=== PATIENT | female | born 1960 | race Caucasian/White ===

== ENCOUNTER 2019-05-08 16:50 | Emergency (ER) | payer MEDICAID ==
[2019-05-08 16:58] VITALS: BP 130/79
[2019-05-08] MEDS ORDERED: cephALEXin 250 MG CAPSULE PO STA (18:42)
[2019-05-08] MEDS ORDERED: SULFAMETH/TRIMETH DS 800/160 MG TABLET PO STA (18:42)
--- NOTE | 2019-05-08 18:46 | ED Physician Documentation ---
PD HPI SKIN - Stated complaint Stated Complaint: SORE ON ABD - Chief complaint Chief Complaint: Wound - History obtained from History obtained from: Patient - History of Present Illness Timing - onset: Other (2 or 3 weeks ago she developed what she thought was a blood blister on the left lower abdominal wall. She opened it up with a needle and it subsequently got infected. Pain is mild. She denies fevers.) Review of Systems Ten Systems: 10 systems reviewed and negative Constitutional: denies: Fever, Chills GI: denies: Abdominal Pain, Nausea, Vomiting, Diarrhea PD PAST MEDICAL HISTORY - Present Medications Home Medications: Ambulatory Orders Medication Instructions Recorded Confirmed Cephalexin [Keflex] 500 mg PO Q6H #28 capsule 05/08/19 Sulfamethox/Trimeth 800/160 1 each PO BID #14 tablet 05/08/19 [Bactrim Ds 800/160] - Allergies Allergies/Adverse Reactions: Allergies Allergy/AdvReac Type Severity Reaction Status Date / Time meperidine Allergy Unknown Verified 05/08/19 16:59 PD ED PE NORMAL - Vitals Vital signs reviewed: Yes - General General: Alert and oriented X 3, No acute distress - Abdomen Abdomen: Other (There is an infected ulcer about the size of a quarter on the left lower abdominal wall with mild surrounding cellulitis. A culture was done during exam.) - Neuro Neuro: Alert and oriented X 3, Normal speech Results - Vitals Vitals: Vital Signs - 24 hr 05/08/19 16:55 Temperature 37.0 C Heart Rate 67 Respiratory 17 Rate Blood Pressure 130/79 O2 Saturation 97 Oxygen O2 Source Room air PD MEDICAL DECISION MAKING - ED course ED course: 59-year-old woman with a abdominal wall infected ulcer. She is placed on sulfa and Keflex. A culture was obtained. Departure - Departure Disposition: Home, Self Care Clinical Impression: Abdominal wall cellulitis Condition: Good Record reviewed to determine appropriate education?: Yes Instructions: Cellulitis Dc Prescriptions: Cephalexin [Keflex] 500 mg PO Q6H #28 capsule Sulfamethox/Trimeth 800/160 [Bactrim Ds 800/160] 1 each PO BID #14 tablet Comments: As discussed, he can wash daily with soap and water and then just keep it covered with a bandage. Return for new or worsening symptoms. Wound check with your physician on Sunday. We are culturing the wound, if an antibiotic changes necessary we will call you in approximately 48 hours.
== END 2019-05-08 19:02 | disposition home or self-care (01) ==
LOC: ED 16:50
DX: L03.311 Cellulitis of abdominal wall (principal)
CPT/HCPCS: 87070; 87181; 87205; 99283; A9270

== ENCOUNTER 2019-07-03 14:18 | Emergency (ER) | payer MEDICAID ==
--- NOTE | 2019-07-03 14:39 | ED Physician Documentation ---
PD HPI HEENT - Stated complaint Stated Complaint: RT NASAL PASSAGE SWELLING - Chief complaint Chief Complaint: Heent - History obtained from History obtained from: Patient - History of Present Illness Timing - onset: How many days ago (3) Timing - duration: Days (3) Timing - details: Gradual onset, Still present (much worse today) Location: Nose (right lower nasal rim, just above upper lip. Small firm tender bump there, with today some swelling to upper lip and right nasolabial crease.) Associated symptoms: Facial swelling. No: Fever, Swollen nodes Similar symptoms before: Diagnosis (has had abscesses in other areas (leg and buttock) but not on face/nose.) Recently seen: Not recently seen (moved to area recently and has new PMD appt Jul 15. Had run out of some meds and requests bridging Rx until her appt.) Review of Systems Constitutional: denies: Fever, Chills Nose: denies: Rhinorrhea / runny nose, Congestion Throat: denies: Sore throat Respiratory: denies: Cough GI: denies: Nausea, Vomiting, Diarrhea Skin: reports: Lesions (the durrent nasal lump) Neurologic: denies: Generalized weakness PD PAST MEDICAL HISTORY - Past Medical History Cardiovascular: None Respiratory: None - Past Surgical History Past Surgical History: No - Present Medications Home Medications: Ambulatory Orders Medication Instructions Recorded Confirmed Cephalexin [Keflex] 500 mg PO Q6H #28 capsule 05/08/19 Amlodipine Besylate 5 mg PO DAILY #20 tablet 07/03/19 Chlorhexidine Gluconate [Hibiclens] 15 ml TP DAILY #236 ml 07/03/19 Colestipol HCl [Colestid] 1 gm PO BID #20 tablet 07/03/19 Levothyroxine [Synthroid] 150 mcg PO DAILY #20 tablet 07/03/19 Lisinopril 40 mg PO DAILY #20 tablet 07/03/19 Mupirocin 1 applic TP TID #15 g 07/03/19 Sulfamethox/Trimeth 800/160 1 each PO BID #14 tablet 07/03/19 [Bactrim Ds] Triamterene/Hydrochlorothiazid 1 each PO DAILY #20 tablet 07/03/19 [Triamterene-Hctz 75-50 mg Tab] - Allergies Allergies/Adverse Reactions: Allergies Allergy/AdvReac Type Severity Reaction Status Date / Time meperidine Allergy Unknown Verified 07/03/19 14:28 - Social History Does the pt smoke?: No Smoking Status: Never smoker Does the pt drink ETOH?: Yes Does the pt have substance abuse?: No - Immunizations Immunizations are current?: Yes - POLST Patient has POLST: No PD ED PE NORMAL - Vitals Vital signs reviewed: Yes - General General: Alert and oriented X 3, No acute distress, Well developed/nourished - HEENT HEENT: Moist mucous membranes, Pharynx benign, Other (right nasal rim with focal area of lump and tenderness c/w small abscess, but no fluctuance. There is some swelling extending to upper lip and right nasolabial fold. No fluctuance there either. ) - Neck Neck: Supple, no meningeal sign, No adenopathy - Cardiac Cardiac: RRR, No murmur - Respiratory Respiratory: Clear bilaterally - Derm Derm: Normal color, Warm and dry - Neuro Neuro: Alert and oriented X 3, No motor deficit, Normal speech Results - Vitals Vitals: Vital Signs - 24 hr 07/03/19 07/03/19 14:22 16:28 Temperature 36.7 C Heart Rate 67 64 Respiratory 16 16 Rate Blood Pressure 148/92 H 131/62 H O2 Saturation 98 98 Oxygen O2 Source Room air Procedures - Abscess I&D (location) right nasal rim Preparation: LET Incision: Incised with scalpel, Purulent drainage (just a couple drops) Other: Pt tolerated well, Antibiotic prescribed PD MEDICAL DECISION MAKING - ED course Complexity details: considered differential, d/w patient Departure - Departure Disposition: 01 Home, Self Care Clinical Impression: Abscess or cellulitis of nose, external Condition: Stable Record reviewed to determine appropriate education?: Yes Instructions: ED Staph Infec Abx Tx Only Prescriptions: Amlodipine Besylate 5 mg PO DAILY #20 tablet Chlorhexidine Gluconate [Hibiclens] 15 ml TP DAILY #236 ml Colestipol HCl [Colestid] 1 gm PO BID #20 tablet Levothyroxine [Synthroid] 150 mcg PO DAILY #20 tablet Lisinopril 40 mg PO DAILY #20 tablet Mupirocin 1 applic TP TID #15 g Sulfamethox/Trimeth 800/160 [Bactrim Ds] 1 each PO BID #14 tablet Triamterene/Hydrochlorothiazid [Triamterene-Hctz 75-50 mg Tab] 1 each PO DAILY #20 tablet Comments: Continue usual medications. Use some warm moist towels to the infection area around the nose to help dry out more drainage. Apply mupirocin antibiotic ointment 2-3 times daily to the area. Use Bactrim antibiotic twice daily for a week for the infection. Use chlorhexidine antiseptic in the shower from head to toe to try to reduce the chance of infection in other places. Do a daily for the next few days and then to once a week or so after that. Recheck if not fully improved over the next several days or so. Discharge Date/Time: 07/03/19 16:28
[2019-07-03] MEDS ORDERED: SULFAMETH/TRIMETH DS 800/160 MG TABLET PO STA (15:02)
[2019-07-03] MEDS ORDERED: LIDOCAINE-EPINEPH-TETRACAINE 3 ML SYRINGE TOP STA (15:03)
[2019-07-03] MEDS ORDERED: MUPIROCIN 2% OINT 1 GM TOP STA (15:03)
[2019-07-03 16:29] VITALS: BP 131/62
== END 2019-07-03 16:28 | disposition home or self-care (01) ==
LOC: ED 14:18
DX: J34.0 Abscess, furuncle and carbuncle of nose (principal)
CPT/HCPCS: 10060

== ENCOUNTER 2019-07-03 19:21 | Outpatient (CLI) | payer MEDICAID | END 2019-07-03 19:22 | disposition critical access hospital (66) | LOC: EMS 19:21 | PROVIDERS: ATTEND Surgery | DX: L29.9 Pruritus, unspecified (principal); R06.02 Shortness of breath | CPT/HCPCS: A0425; A0427; A0999 ==

== ENCOUNTER 2019-07-03 19:58 | Emergency (ER) | payer MEDICAID ==
[2019-07-03] MEDS ORDERED: predniSONE 20 MG TABLET PO STA (20:06)
[2019-07-03] MEDS ORDERED: SODIUM CHLORIDE 0.9% 1,000 ML IV ONE (20:07)
[2019-07-03] MEDS ORDERED: ACETAMINOPHEN 325 MG TABLET PO STA (20:13)
--- NOTE | 2019-07-03 20:22 | ED Physician Documentation ---
History of Present Illness - Stated complaint Stated Complaint: ALLERGIC REACTION - History obtained from History obtained from: Patient - History of Present Illness Timing: Today Pain level max: 0 Pain level now: 0 - Additonal information Additional information: 59-year-old female presents to the emergency department after being seen here earlier today and started on Bactrim. She began to itch on her way home and took Benadryl without relief. She was given epinephrine by EMS 0.3 mg IM approximately 45 minutes prior to arrival. She was not having any difficulty breathing. No wheezing or stridor. She is currently feeling better. Does not have any known allergies to medications. No nausea or vomiting. Review of Systems Constitutional: denies: Fever, Chills Nose: denies: Rhinorrhea / runny nose, Congestion Throat: denies: Sore throat Cardiac: denies: Chest pain / pressure Respiratory: denies: Cough GI: denies: Nausea, Vomiting, Diarrhea Skin: denies: Rash Musculoskeletal: denies: Neck pain, Back pain Neurologic: denies: Focal weakness, Numbness, Headache PD PAST MEDICAL HISTORY - Past Medical History Past Medical History: Yes Cardiovascular: Hypertension, High cholesterol Endocrine/Autoimmune: HyPOthyroidism Psych: Depression Musculoskeletal: Osteoarthritis - Past Surgical History Past Surgical History: No General: Cholecystectomy - Present Medications Home Medications: Ambulatory Orders Medication Instructions Recorded Confirmed Cephalexin [Keflex] 500 mg PO Q6H #28 capsule 05/08/19 Amlodipine Besylate 5 mg PO DAILY #20 tablet 07/03/19 Chlorhexidine Gluconate [Hibiclens] 15 ml TP DAILY #236 ml 07/03/19 Clindamycin HCl [Clindamycin 300MG 300 mg PO Q6H #28 capsule 07/03/19 CAP] Colestipol HCl [Colestid] 1 gm PO BID #20 tablet 07/03/19 Levothyroxine [Synthroid] 150 mcg PO DAILY #20 tablet 07/03/19 Lisinopril 40 mg PO DAILY #20 tablet 07/03/19 Mupirocin 1 applic TP TID #15 g 07/03/19 Sulfamethox/Trimeth 800/160 1 each PO BID #14 tablet 07/03/19 [Bactrim Ds] Triamterene/Hydrochlorothiazid 1 each PO DAILY #20 tablet 07/03/19 [Triamterene-Hctz 75-50 mg Tab] predniSONE [Prednisone] 40 mg PO DAILY #6 tablet 07/03/19 - Allergies Allergies/Adverse Reactions: Allergies Allergy/AdvReac Type Severity Reaction Status Date / Time meperidine Allergy Unknown Verified 07/03/19 14:28 Sulfa (Sulfonamide Allergy Itching Verified 07/03/19 20:21 Antibiotics) - Social History Does the pt smoke?: No Smoking Status: Never smoker Does the pt drink ETOH?: Yes Does the pt have substance abuse?: No - Immunizations Immunizations are current?: Yes - POLST Patient has POLST: No PD ED PE NORMAL - Vitals Vital signs reviewed: Yes - General General: Alert and oriented X 3, No acute distress - HEENT HEENT: Ears normal, Moist mucous membranes, Pharynx benign - Neck Neck: Supple, no meningeal sign - Cardiac Cardiac: RRR - Respiratory Respiratory: No respiratory distress, Clear bilaterally, Other (No wheezing or stridor) - Abdomen Abdomen: Soft, Non tender, Non distended - Derm Derm: Warm and dry, No rash - Extremities Extremities: No edema - Neuro Neuro: Alert and oriented X 3 Results - Vitals Vitals: Vital Signs - 24 hr 07/03/19 07/03/19 07/03/19 20:00 21:00 21:14 Temperature 36.9 C Heart Rate 69 64 Respiratory 21 17 Rate Blood Pressure 155/90 H 158/96 H 117/75 O2 Saturation 97 97 Oxygen O2 Source Room air PD MEDICAL DECISION MAKING - ED course Complexity details: re-evaluated patient, considered differential, d/w patient ED course: Symptoms resolved in the emergency department. Likely allergic reaction to the sulfa and Bactrim. Given prednisone here as well. No recurrence of symptoms after the epinephrine has worn off. Will prescribe prednisone for home and change her to clindamycin. Patient never had any respiratory issues or evidence of anaphylaxis. Patient counseled regarding signs and symptoms for which I believe and urgent re-evaluation would be necessary. Patient with good understanding of and agreement to plan and is comfortable going home at this time This document was made in part using voice recognition software. While efforts are made to proofread this document, sound alike and grammatical errors may occur. Departure - Departure Disposition: 01 Home, Self Care Clinical Impression: Allergic reaction Qualifiers: Encounter type: initial encounter Qualified Code(s): T78.40XA - Allergy, unspecified, initial encounter Condition: Good Instructions: ED Drug React Allergic Follow-Up: Jacqueline Victoria ARNP [Primary Care Provider] - Within 1 week Prescriptions: Clindamycin HCl [Clindamycin 300MG CAP] 300 mg PO Q6H #28 capsule predniSONE [Prednisone] 40 mg PO DAILY #6 tablet Comments: You appear to have an allergy to sulfa. Return if you worsen. Stop the Bactrim. We will change her antibiotic to clindamycin. Discharge Date/Time: 07/03/19 21:14
[2019-07-03 21:15] VITALS: BP 117/75
== END 2019-07-03 21:14 | disposition home or self-care (01) ==
LOC: EDUNIT# → ED 19:58
DX: J34.0 Abscess, furuncle and carbuncle of nose (principal); L29.9 Pruritus, unspecified; T36.8X5A Adverse effect of other systemic antibiotics, initial encounter; I10 Essential (primary) hypertension
CPT/HCPCS: 10060; 96360; 99283; 99284; A9270; J7512

== ENCOUNTER 2019-07-22 09:09 | Outpatient (CLI) | payer MEDICAID ==
[2019-07-22 17:35] LABS: BASOPHILS % (AUTO) 0.5 %; EOSINOPHILS # (AUTO) 0.2 10^3/uL (0.0-0.7); EOSINOPHILS % (AUTO) 2.3 %; HGB - HEMOGLOBIN 11.3 g/dL (12.0-16.0); LYMPHOCYTES # (AUTO) 1.5 10^3/uL (1.5-3.5); LYMPHOCYTES % (AUTO) 19.9 %; MEAN CORPUSCULAR HGB CONC 31.1 g/dL (32.0-36.0); MEAN CORPUSCULAR VOLUME 93.1 fL (81.0-99.0); MEAN PLATELET VOLUME 11.1 fL (7.9-10.8); MONOCYTES # (AUTO) 0.4 10^3/uL (0.0-1.0); NEUTROPHILS # (AUTO) 5.2 10^3/uL (1.5-6.6); NEUTROPHILS % (AUTO) 70.8 %; PLT - PLATELET COUNT 284 10^3/uL (130-450); RED CELL DISTRIBUTION WIDTH 15.1 % (12.0-15.0); WHITE BLOOD COUNT 7.4 x10^3/uL (4.8-10.8)
[2019-07-22 18:03] LABS: ALBUMIN 3.7 g/dL (3.2-5.5); ALBUMIN/GLOBULIN RATIO 1.1 (1.0-2.2); ALKALINE PHOSPHATASE 73 IU/L (42-121); ALT ALANINE AMINOTRANSFERASE 27 IU/L (10-60); AST ASPARTATE AMINOTRANSFERASE 21 IU/L (10-42); BILIRUBIN,TOTAL 0.7 mg/dL (0.2-1.0); BUN - BLOOD UREA NITROGEN 13 mg/dL (6-20); CALCIUM 8.5 mg/dL (8.5-10.3); CARBON DIOXIDE - CO2 27 mmol/L (21-32); CHLORIDE 107 mmol/L (101-111); CHOL/HDL RATIO 5.9 (<4.4); CHOLESTEROL 199 mg/dL; CREATININE 1.1 mg/dL (0.4-1.0); GFR - MDRD 51 (>89); GLUCOSE 115 mg/dL (70-100); HDL CHOLESTEROL 34 mg/dL; LDL CHOLESTEROL,CALCULATED 102 mg/dL; SODIUM 142 mmol/L (135-145); TOTAL PROTEIN 7.1 g/dL (6.7-8.2); VLDL CHOLESTEROL 63 mg/dL
[2019-07-22 18:40] LABS: FREE T4 (FREE THYROXINE) 0.96 ng/dL (0.58-1.64)
--- NOTE | 2019-07-22 21:43 | XRAY Report ---
Reason: KNEE PAIN, LEFT Procedure Date: 07/22/2019 Accession Number: [id number] / [id number] Procedure: XRS - Knee 2 View LT CPT Code: Final Report FULL RESULT: EXAM: LEFT KNEE RADIOGRAPHY EXAM DATE: 07/22/2019 09:36 AM. CLINICAL HISTORY: KNEE PAIN, LEFT. COMPARISON: None. TECHNIQUE: 2 views. FINDINGS: Bones: Multiple osteophytes are present. No fractures or bone lesions. No evidence of bony remodeling. Joints: There is moderate tricompartmental joint space narrowing. No effusion. No subluxations. Soft Tissues: Normal. No soft tissue swelling. IMPRESSION: Mild osteoarthritic changes present without acute fracture. Kellgren Nilo Grade 2. Kellgren and Nilo classification of osteoarthritis: Grade 0: no radiographic features of osteoarthritis are present Grade 1: doubtful joint space narrowing (JSN) and possible osteophytic lipping Grade 2: definite osteophytes and possible JSN on anteroposterior weight-bearing radiograph Grade 3: multiple osteophytes, definite JSN, sclerosis, possible bony deformity Grade 4: large osteophytes, marked JSN, severe sclerosis and definite bony deformity RADIA
== END 2019-07-22 09:10 | disposition home or self-care (01) ==
LOC: DI.S 09:09
PROVIDERS: ATTEND Registered Nurse
DX: M17.12 Unilateral primary osteoarthritis, left knee (principal); K21.9 Gastro-esophageal reflux disease without esophagitis; I10 Essential (primary) hypertension; E03.9 Hypothyroidism, unspecified; E78.5 Hyperlipidemia, unspecified
CPT/HCPCS: 36415; 80053; 80061; 83721; 84439; 84443; 85025

== ENCOUNTER 2019-08-29 08:00 | Outpatient (CLI) | payer MEDICAID | END 2019-08-29 23:59 | disposition home or self-care (01) | LOC: LAB.R 08:00 | PROVIDERS: ATTEND Registered Nurse | DX: K52.9 Noninfective gastroenteritis and colitis, unspecified (principal) | CPT/HCPCS: 87177; 87209 ==

== ENCOUNTER 2019-12-30 23:19 | Emergency (ER) | payer MEDICAID ==
[2019-12-30] MEDS ORDERED: predniSONE 20 MG TABLET PO STA (23:32)
[2019-12-30] MEDS ORDERED: CETIRIZINE 10 MG TABLET PO STA (23:32)
--- NOTE | 2019-12-30 23:42 | ED Physician Documentation ---
History of Present Illness - Stated complaint Stated Complaint: ALLERGIC REACTION - Chief complaint Chief Complaint: General - History obtained from History obtained from: Patient - History of Present Illness Timing: Today Pain level max: 0 Pain level now: 0 - Additonal information Additional information: Patient states that she had Vazquez's this morning and then her hands started itching. And has continued to itch throughout the night. Has not taken anything for this. Nothing makes it better or worse. No difficulty breathing. No throat swelling. No rash. Review of Systems Constitutional: denies: Fever, Chills Respiratory: denies: Cough GI: denies: Nausea, Vomiting, Diarrhea Skin: denies: Rash Neurologic: denies: Headache PD PAST MEDICAL HISTORY - Past Medical History Cardiovascular: Hypertension, High cholesterol Endocrine/Autoimmune: HyPOthyroidism Psych: Depression Musculoskeletal: Osteoarthritis - Past Surgical History Past Surgical History: No General: Cholecystectomy - Present Medications Home Medications: Ambulatory Orders Medication Instructions Recorded Confirmed Cephalexin [Keflex] 500 mg PO Q6H #28 capsule 05/08/19 Amlodipine Besylate 5 mg PO DAILY #20 tablet 07/03/19 Chlorhexidine Gluconate [Hibiclens] 15 ml TP DAILY #236 ml 07/03/19 Clindamycin HCl [Clindamycin 300MG 300 mg PO Q6H #28 capsule 07/03/19 CAP] Colestipol HCl [Colestid] 1 gm PO BID #20 tablet 07/03/19 Levothyroxine [Synthroid] 150 mcg PO DAILY #20 tablet 07/03/19 Mupirocin 1 applic TP TID #15 g 07/03/19 Sulfamethox/Trimeth 800/160 1 each PO BID #14 tablet 07/03/19 [Bactrim Ds] Triamterene/Hydrochlorothiazid 1 each PO DAILY #20 tablet 07/03/19 [Triamterene-Hctz 75-50 mg Tab] lisinopriL [Lisinopril] 40 mg PO DAILY #20 tablet 07/03/19 predniSONE [Prednisone] 40 mg PO DAILY #6 tablet 07/03/19 predniSONE [Prednisone] 40 mg PO DAILY #10 tablet 12/30/19 - Allergies Allergies/Adverse Reactions: Allergies Allergy/AdvReac Type Severity Reaction Status Date / Time meperidine Allergy Unknown Verified 12/30/19 23:27 Sulfa (Sulfonamide Allergy Itching Verified 12/30/19 23:27 Antibiotics) - Social History Does the pt smoke?: No Smoking Status: Never smoker Does the pt drink ETOH?: Yes Does the pt have substance abuse?: No - Immunizations Immunizations are current?: Yes - POLST Patient has POLST: No PD ED PE NORMAL - Vitals Vital signs reviewed: Yes - General General: Alert and oriented X 3, No acute distress - HEENT HEENT: Moist mucous membranes - Neck Neck: Supple, no meningeal sign - Cardiac Cardiac: RRR - Respiratory Respiratory: No respiratory distress, Clear bilaterally - Abdomen Abdomen: Soft, Non tender, Non distended - Derm Derm: Warm and dry, No rash - Neuro Neuro: Alert and oriented X 3 - Psych Psych: Normal mood, Normal affect Results - Vitals Vitals: Vital Signs - 24 hr 12/30/19 12/30/19 23:25 23:50 Temperature 36.5 C Heart Rate 67 68 Respiratory 17 98 H Rate Blood Pressure 132/69 H 127/73 O2 Saturation 96 Oxygen O2 Source Room air PD MEDICAL DECISION MAKING - ED course Complexity details: considered differential, d/w patient ED course: Patient with an apparent allergic reaction. Unclear to what. Will place her on steroids for home. She is well-appearing, nontoxic. Afebrile. No airway involvement. No stridor. No wheezing. No visible urticaria. Patient counseled regarding signs and symptoms for which I believe and urgent re- evaluation would be necessary. Patient left the emergency department and as she walked by the nurses station, she said her hands were still itching. She was informed that the medication would take 20-30 minutes to begin to work and that she is welcome to stay in her room if she wishes to stay. Patient turned away angrily and left the emergency department. This document was made in part using voice recognition software. While efforts are made to proofread this document, sound alike and grammatical errors may occur. Departure - Departure Disposition: 01 Home, Self Care Clinical Impression: Allergic reaction Qualifiers: Encounter type: initial encounter Qualified Code(s): T78.40XA - Allergy, unspecified, initial encounter Condition: Good Instructions: ED Allergic Reaction General Other Follow-Up: Jacqueline Victoria ARNP [Primary Care Provider] - As Needed Prescriptions: predniSONE [Prednisone] 40 mg PO DAILY #10 tablet Comments: You can use Benadryl, Zyrtec or Claritin at home as well. Return if you worsen. This should improve over the next 24 hours. Discharge Date/Time: 12/30/19 23:54
[2019-12-31] VITALS: BP 127/73
== END 2019-12-30 23:54 | disposition home or self-care (01) ==
LOC: ED 23:19
DX: T78.40XA Allergy, unspecified, initial encounter (principal); X58.XXXA Exposure to other specified factors, initial encounter; I10 Essential (primary) hypertension
CPT/HCPCS: 99282; 99284; A9270; J7512

== ENCOUNTER 2020-02-09 08:00 | Outpatient (CLI) | payer SELFPAY ==
[2020-02-09 17:54] LABS: BASOPHILS % (AUTO) 0.5 %; EOSINOPHILS # (AUTO) 0.1 10^3/uL (0.0-0.7); EOSINOPHILS % (AUTO) 1.5 %; HGB - HEMOGLOBIN 11.3 g/dL (12.0-16.0); LYMPHOCYTES # (AUTO) 1.1 10^3/uL (1.5-3.5); LYMPHOCYTES % (AUTO) 13.7 %; MEAN CORPUSCULAR HEMOGLOBIN 27.4 pg (27.0-31.0); MEAN CORPUSCULAR HGB CONC 30.9 g/dL (32.0-36.0); MEAN CORPUSCULAR VOLUME 88.8 fL (81.0-99.0); MEAN PLATELET VOLUME 10.6 fL (7.9-10.8); MONOCYTES # (AUTO) 0.4 10^3/uL (0.0-1.0); NEUTROPHILS # (AUTO) 6.5 10^3/uL (1.5-6.6); NEUTROPHILS % (AUTO) 78.9 %; PLT - PLATELET COUNT 235 10^3/uL (130-450); RED BLOOD COUNT 4.12 10^6/uL (4.20-5.40); RED CELL DISTRIBUTION WIDTH 14.2 % (12.0-15.0); WHITE BLOOD COUNT 8.3 x10^3/uL (4.8-10.8)
[2020-02-09 18:05] LABS: ALBUMIN 3.9 g/dL (3.2-5.5); ALBUMIN/GLOBULIN RATIO 1.2 (1.0-2.2); BILIRUBIN,TOTAL 0.7 mg/dL (0.2-1.0); CALCIUM 8.9 mg/dL (8.5-10.3); CREATININE 1.7 mg/dL (0.4-1.0); TOTAL PROTEIN 7.1 g/dL (6.7-8.2)
[2020-02-09 18:18] LABS: THYROID STIMULATING HORMONE 6.17 uIU/mL (0.34-5.60)
[2020-02-09 18:19] LABS: FREE T3 2.92 pg/mL (2.5-3.9)
[2020-02-09 18:20] LABS: FREE T4 (FREE THYROXINE) 0.93 ng/dL (0.58-1.64)
== END 2020-02-09 23:59 | disposition home or self-care (01) ==
LOC: LAB.WCP 08:00
PROVIDERS: ATTEND Nurse Practitioner
DX: I12.9 Hypertensive chronic kidney disease with stage 1 through stage 4 chronic kidney disease, or unspecified chronic kidney disease (principal); N18.3 Chronic kidney disease, stage 3 (moderate); D63.1 Anemia in chronic kidney disease; E03.9 Hypothyroidism, unspecified; F32.9 Major depressive disorder, single episode, unspecified; F41.9 Anxiety disorder, unspecified
CPT/HCPCS: 36415; 80053; 84439; 84443; 84481; 85025

== ENCOUNTER 2020-03-03 21:39 | Outpatient (CLI) | payer MEDICAID ==
[2020-03-03 23:40] LABS: BILIRUBIN,URINE NEGATIVE (NEGATIVE); GLUCOSE, URINE (UA) NEGATIVE (NEGATIVE); KETONES,URINE (UA) NEGATIVE (NEGATIVE); LEUKOCYTE ESTERASE, URINE TRACE (NEGATIVE); NITRITE,URINE NEGATIVE (NEGATIVE); OCCULT BLOOD,URINE NEGATIVE (NEGATIVE); PROTEIN,URINE NEGATIVE (NEGATIVE); UROBILINOGEN,URINE 0.2 (NORMAL) E.U./dL (NORMAL)
[2020-03-03 23:46] LABS: BACTERIA,URINE Few /HPF (None Seen); CLARITY,URINE HAZY (CLEAR); RBC,URINE 0-5 /HPF (0-5); SQUAMOUS EPITHELIAL CELL,UR MOD Squamous (<= Few)
--- NOTE | 2020-03-04 09:53 | Ultrasound Report ---
PROCEDURE: Retroperitoneal INDICATIONS: CKD STAGE 3 TECHNIQUE: Real-time scanning was performed of the kidneys and bladder, with image documentation. COMPARISON: None. FINDINGS: Evaluation is limited by body habitus and bowel gas. Kidneys: Right kidney measures 11.0 cm long; left kidney measures 10.7 cm long. Right renal cortica l thickness is 1.0 cm; left renal cortical thickness is 1.3 cm. Renal cortical echotexture appears g rossly within normal limits with preserved cortical medullary differentiation. No hydronephrosis. Bladder: Pre-void bladder volume is 110 mL. No postvoid residual volume. Pre-void images demonstrate no intraluminal masses or stones. On pre-void images, bilateral ureteral jets are noted with color Doppler interrogation. Miscellaneous: No free pelvic fluid. IMPRESSION: 1. No evidence of hydronephrosis. 2. Mild renal cortical thinning bilaterally. Reviewed by: Austin Zepeda MD on 03/04/2020 9:52 AM PDT Approved by: Austin Zepeda MD on 03/04/2020 9:52 AM PDT Station ID: [id number]
[2020-03-06 15:04] LABS: ALBUMIN 3.7 g/dL (3.8-4.8); ALPHA 1 GLOBULIN 0.4 g/dL (0.2-0.3); ALPHA 2 GLOBULIN 0.9 g/dL (0.5-0.9); BETA 1 GLOBULIN 0.4 g/dL (0.4-0.6); BETA 2 GLOBULIN 0.4 g/dL (0.2-0.5); GAMMA GLOBULIN 0.8 g/dL (0.8-1.7)
== END 2020-03-03 21:40 | disposition home or self-care (01) ==
LOC: DI 21:39
PROVIDERS: ATTEND Nurse Practitioner
DX: N18.3 Chronic kidney disease, stage 3 (moderate) (principal); D64.9 Anemia, unspecified
CPT/HCPCS: 36415; 76770; 81001; 84155; 84165

== ENCOUNTER 2020-03-16 18:35 | Outpatient (CLI) | payer MEDICAID ==
[2020-03-02 18:18] LABS: ALBUMIN/GLOBULIN RATIO 1.3 (1.0-2.2); BILIRUBIN,TOTAL 0.9 mg/dL (0.2-1.0); CALCIUM 8.6 mg/dL (8.5-10.3); CREATININE 2.3 mg/dL (0.4-1.0); TOTAL PROTEIN 7.2 g/dL (6.7-8.2)
[2020-03-16 19:06] LABS: ALBUMIN 3.9 g/dL (3.2-5.5); ALBUMIN/GLOBULIN RATIO 1.2 (1.0-2.2); BILIRUBIN,TOTAL 0.6 mg/dL (0.2-1.0); CREATININE 1.4 mg/dL (0.4-1.0); TOTAL PROTEIN 7.1 g/dL (6.7-8.2)
== END 2020-03-16 18:36 | disposition home or self-care (01) ==
LOC: LAB.WCP 18:35
PROVIDERS: ATTEND Nurse Practitioner
DX: N18.3 Chronic kidney disease, stage 3 (moderate) (principal)
CPT/HCPCS: 36415; 80053; 84300

== ENCOUNTER 2020-03-18 19:11 | Outpatient (CLI) | payer MEDICAID ==
--- NOTE | 2020-03-19 08:39 | XRAY Report ---
PROCEDURE: Chest 2 View X-Ray INDICATIONS: EXERTIONAL SHORTNESS OF BREATH TECHNIQUE: 2 view(s) of the chest. COMPARISON: None. FINDINGS: Surgical changes and devices: None. Lungs and pleura: No pleural effusions or pneumothorax. Lungs are clear. Normal variant asymmetric elevation of the right hemidiaphragm. Mediastinum: Mediastinal contours are normal. Heart size is normal. Bones and chest wall: No suspicious bony abnormalities. Soft tissues appear unremarkable. IMPRESSION: No acute cardiopulmonary process demonstrated radiographically. Reviewed by: Nikhil Miguel MD on 03/19/2020 8:37 AM PDT Approved by: Nikhil Miguel MD on 03/19/2020 8:37 AM PDT Station ID: [id number]
== END 2020-03-18 19:12 | disposition home or self-care (01) ==
LOC: DI 19:11
PROVIDERS: ATTEND Nurse Practitioner
DX: R06.02 Shortness of breath (principal)
CPT/HCPCS: 71046

== ENCOUNTER 2020-03-26 07:00 | Outpatient (CLI) | payer MEDICAID | END 2020-03-26 23:59 | disposition home or self-care (01) | LOC: LAB.R 07:00 | PROVIDERS: ATTEND Family Medicine | DX: R06.09 Other forms of dyspnea (principal); Z20.828 Contact with and (suspected) exposure to other viral communicable diseases ==

== ENCOUNTER 2020-04-28 08:00 | Outpatient (CLI) | payer MEDICAID ==
[2020-04-28 11:56] LABS: BASOPHILS % (AUTO) 0.4 %; EOSINOPHILS # (AUTO) 0.1 10^3/uL (0.0-0.7); EOSINOPHILS % (AUTO) 1.7 %; HGB - HEMOGLOBIN 11.5 g/dL (12.0-16.0); LYMPHOCYTES # (AUTO) 1.4 10^3/uL (1.5-3.5); LYMPHOCYTES % (AUTO) 16.9 %; MEAN CORPUSCULAR HEMOGLOBIN 27.6 pg (27.0-31.0); MEAN CORPUSCULAR HGB CONC 31.2 g/dL (32.0-36.0); MEAN CORPUSCULAR VOLUME 88.7 fL (81.0-99.0); MEAN PLATELET VOLUME 10.9 fL (7.9-10.8); MONOCYTES # (AUTO) 0.6 10^3/uL (0.0-1.0); MONOCYTES % (AUTO) 6.8 %; NEUTROPHILS # (AUTO) 6.2 10^3/uL (1.5-6.6); NEUTROPHILS % (AUTO) 73.7 %; PLT - PLATELET COUNT 273 10^3/uL (130-450); RED BLOOD COUNT 4.16 10^6/uL (4.20-5.40); RED CELL DISTRIBUTION WIDTH 14.2 % (12.0-15.0); WHITE BLOOD COUNT 8.4 x10^3/uL (4.8-10.8)
[2020-04-28 12:19] LABS: ALBUMIN 3.9 g/dL (3.2-5.5); ALBUMIN/GLOBULIN RATIO 1.3 (1.0-2.2); BILIRUBIN,TOTAL 0.7 mg/dL (0.2-1.0); CALCIUM 9.1 mg/dL (8.5-10.3); CREATININE 1.2 mg/dL (0.4-1.0)
== END 2020-04-28 23:59 | disposition home or self-care (01) ==
LOC: LAB.WCP 08:00
PROVIDERS: ATTEND Nurse Practitioner
DX: N18.3 Chronic kidney disease, stage 3 (moderate) (principal)
CPT/HCPCS: 36415; 80053; 85025

== ENCOUNTER 2020-09-16 12:54 | Outpatient (CLI) | payer MEDICAID ==
--- NOTE | 2020-09-16 15:58 | XRAY Report ---
PROCEDURE: Knee 3 View LT INDICATIONS: L KNEE PX TECHNIQUE: 3 views of the left knee(s) were acquired. COMPARISON: None. FINDINGS: Bones: No fractures or dislocations. No suspicious bony lesions. Moderate patellofemoral and media l compartment osteoarthritis. Mild lateral compartment osteoarthritis. Soft tissues: No joint effusion. No suspicious soft tissue calcifications. IMPRESSION: Tricompartmental osteoarthritis. Reviewed by: Heaven Marshall MD, PhD on 09/16/2020 3:57 PM PST Approved by: Heaven Marshall MD, PhD on 09/16/2020 3:57 PM PST Station ID: [id number]
== END 2020-09-16 23:59 | disposition home or self-care (01) ==
LOC: DI.N 12:54
PROVIDERS: ATTEND Family Medicine
DX: M25.562 Pain in left knee (principal); M17.12 Unilateral primary osteoarthritis, left knee

== ENCOUNTER 2020-10-13 08:00 | Outpatient (CLI) | payer MEDICAID ==
[2020-10-13 18:23] LABS: BASOPHILS % (AUTO) 0.2 %; EOSINOPHILS # (AUTO) 0.1 10^3/uL (0.0-0.7); EOSINOPHILS % (AUTO) 1.4 %; HGB - HEMOGLOBIN 12.9 g/dL (12.0-16.0); LYMPHOCYTES # (AUTO) 1.2 10^3/uL (1.5-3.5); MEAN CORPUSCULAR HEMOGLOBIN 26.2 pg (27.0-31.0); MEAN CORPUSCULAR HGB CONC 30.7 g/dL (32.0-36.0); MEAN CORPUSCULAR VOLUME 85.4 fL (81.0-99.0); MEAN PLATELET VOLUME 10.8 fL (7.9-10.8); MONOCYTES # (AUTO) 0.5 10^3/uL (0.0-1.0); MONOCYTES % (AUTO) 5.8 %; NEUTROPHILS # (AUTO) 6.8 10^3/uL (1.5-6.6); NEUTROPHILS % (AUTO) 78.3 %; PLT - PLATELET COUNT 239 10^3/uL (130-450); RED BLOOD COUNT 4.92 10^6/uL (4.20-5.40); RED CELL DISTRIBUTION WIDTH 16.4 % (12.0-15.0); WHITE BLOOD COUNT 8.7 x10^3/uL (4.8-10.8)
[2020-10-13 18:29] LABS: BILIRUBIN,URINE NEGATIVE (NEGATIVE); GLUCOSE, URINE (UA) NEGATIVE (NEGATIVE); KETONES,URINE (UA) NEGATIVE (NEGATIVE); LEUKOCYTE ESTERASE, URINE NEGATIVE (NEGATIVE); NITRITE,URINE NEGATIVE (NEGATIVE); OCCULT BLOOD,URINE NEGATIVE (NEGATIVE); PH,URINE 6.5 PH (5.0-7.5); PROTEIN,URINE NEGATIVE (NEGATIVE); UROBILINOGEN,URINE 0.2 (NORMAL) E.U./dL (NORMAL)
[2020-10-13 18:43] LABS: CLARITY,URINE CLEAR (CLEAR)
[2020-10-13 18:44] LABS: BACTERIA,URINE None Seen /HPF (None Seen); RBC,URINE None Seen /HPF (0-5); SQUAMOUS EPITHELIAL CELL,UR RARE Squamous (<= Few); WBC,URINE 0-3 /HPF (0-5)
[2020-10-13 19:06] LABS: THYROID STIMULATING HORMONE 5.03 uIU/mL (0.34-5.60)
[2020-10-13 19:08] LABS: ESTIMATED AVERAGE GLUCOSE 114 mg/dL (70-100); HEMOGLOBIN A1c% 5.6 % (4.27-6.07)
[2020-10-13 19:13] LABS: FERRITIN 28.1 ng/mL (11.0-306.8)
[2020-10-13 19:15] LABS: % IRON SATURATION 15 % (20-50); ALBUMIN 3.9 g/dL (3.2-5.5); ALBUMIN/GLOBULIN RATIO 1.1 (1.0-2.2); ALKALINE PHOSPHATASE 103 IU/L (42-121); ALT ALANINE AMINOTRANSFERASE 12 IU/L (10-60); AST ASPARTATE AMINOTRANSFERASE 15 IU/L (10-42); BILIRUBIN,TOTAL 0.8 mg/dL (0.2-1.0); BUN - BLOOD UREA NITROGEN 17 mg/dL (6-20); CALCIUM 9.1 mg/dL (8.5-10.3); CARBON DIOXIDE - CO2 30 mmol/L (21-32); CHLORIDE 103 mmol/L (101-111); CHOLESTEROL 133 mg/dL; GFR - MDRD 57 (>89); GLUCOSE 105 mg/dL (70-100); HDL CHOLESTEROL 33 mg/dL; IRON 57 ug/dL (28-170); LDL CHOLESTEROL,CALCULATED 61 mg/dL; LDL/HDL RATIO 1.8 (<4.4); POTASSIUM 3.9 mmol/L (3.5-5.0); SODIUM 139 mmol/L (135-145); TOTAL IRON BINDING CAPACITY 375 ug/dL (250-450); TOTAL PROTEIN 7.5 g/dL (6.7-8.2); TRANSFERRIN 268 mg/dL (192-382); TRIGLYCERIDES 195 mg/dL; VLDL CHOLESTEROL 39 mg/dL
== END 2020-10-13 23:59 | disposition home or self-care (01) ==
LOC: LAB.WCP 08:00
PROVIDERS: ATTEND Family Medicine
DX: D64.9 Anemia, unspecified (principal); E78.1 Pure hyperglyceridemia; E66.01 Morbid (severe) obesity due to excess calories; E03.9 Hypothyroidism, unspecified; N18.30 Chronic kidney disease, stage 3 unspecified
CPT/HCPCS: 36415; 80053; 80061; 81001; 82607; 82728; 83036; 83540; 83721; 84443; 84466; 85025

== ENCOUNTER 2020-11-14 14:41 | Outpatient (CLI) | payer MEDICAID ==
--- NOTE | 2020-11-14 17:16 | Ultrasound Report ---
PROCEDURE: Pelvic w/Transvaginal INDICATIONS: POST MENOPAUSAL BLEEDING TECHNIQUE: Real-time scanning was performed of the pelvic organs, with image documentation. Additional endovagi nal scanning was necessary due to incomplete visualization of the adnexal and endometrial structures by transabdominal scanning. COMPARISON: None. FINDINGS: No pathologic free abdominal or pelvic fluid. Uterus: Uterus is mildly prominent in size, measuring 10.3 x 4.9 x 5.9 cm. The endometrium measures 17 mm in combined thickness. An apparent polyp can be seen along the anterior fundal region of the endometrial stripe measures up to 1.1 cm. An additional 7 mm cyst can be seen involving the lower [place] segment. Uterine fibroids are seen, which are as follows: Mid posterior uterus, intramural, 6 x 5 x 6 mm Right mid uterus, intramural, a by 3 x 4 mm, with calcification Heterogeneous irregularity can be seen involving the cervix that measures 2 x 2 0.4 x 2.2 cm, with in creased vascularity. Ovaries: The ovaries are not well seen and are only seen transvaginally. The right ovary measures 1. 9 x 1.6 x 2 cm and the left ovary measures 1.9 x 1.5 x 1.8 cm. No significant ovarian abnormalities a re seen. There are less than 12 follicles seen on each side. No adnexal masses are seen. This study is limited by body habitus. IMPRESSION: The endometrial stripe is abnormally thickened (17 mm) in this patient with a presenting history of postmenopausal bleeding. Differential diagnosis includes endometrial hyperplasia and endo metrial carcinoma. Please consider correlation with endometrial histology, as clinically appropriate. Heterogeneous region with increased vascularity seen involving the cervix. Please consider cervical c arcinoma. Please could relate with physical examination findings and histologic sampling, if clinical ly appropriate. An apparent endometrial polyp can be seen measuring 1.1 cm. Small uterine fibroids can be seen, which measure up to 8 mm. Normal-appearing ovaries, which are only seen transabdominally. Reviewed by: David Frias MD on 11/14/2020 4:15 PM ORLY Approved by: David Frias MD on 11/14/2020 4:15 PM [place] Station ID: [id number]
== END 2020-11-14 14:42 | disposition home or self-care (01) ==
LOC: DI 14:41
PROVIDERS: ATTEND Family Medicine
DX: R93.89 Abnormal findings on diagnostic imaging of other specified body structures (principal); N84.0 Polyp of corpus uteri; D25.9 Leiomyoma of uterus, unspecified; N85.8 Other specified noninflammatory disorders of uterus

== ENCOUNTER 2020-11-18 15:02 | Outpatient (CLI) | payer MEDICAID ==
--- NOTE | 2020-11-18 15:57 | SLEEP CARE CONSULTATION ---
Information from patient questionnaire entered by Rosalinda Nielsen. I have reviewed and concur with the information entered by Rosalinda Nielsen. This document represents the service I personally performed and the decisions made by me, Roya Grewal ARNP. History of Present Illness Service Date and Time: 11/18/2020 1502 Reason for Visit: New patient, Previously diagnosed sleep apnea Chief Complaint: reports: Unrefreshed sleep, Snoring (light), Excessive daytime sleepiness, Frequent awakenings at night. denies: Observed pauses in breathing Date of Onset: ~ 1 year Usual bedtime: 1 AM? Depending on day off Time it takes to fall asleep: 10-15 min, sometimes longer Snores at night: Yes (lightly) Observed to quit breathing while asleep: No Sleeps alone due to snoring: No (N/A) Number of times waking at night: sometimes several times, mostly not at all Reasons for waking at night: reports: Choking (rare occasion), Other (unknown reason) Toss, Turn, or Twitch while sleeping: Yes Recalls having dreams: Yes Usually gets out of bed at: 1-2 hrs before work Feels refreshed in the morning: No Morning headache: No Sleepy or fatigued during the day: Yes Ever fallen asleep while driving: No Takes day naps: Yes Dreams during day naps: Yes Prior sleep studies: Yes Year and Where: [place], [place] many yrs ago Additional HPI information: I had the pleasure of seeing MIMI MOORE today regarding the possibility of her having a sleep disorder. Her current complaints are excessive daytime sleepiness, unrefreshed sleep, snoring and frequent night awakenings. She was previously diagnosed with possibly mild sleep apnea and was on a CPAP. She stopped using it 8-10 years ago. She states there was a lot going on in her life and she just stopped using it. She states over the last year she is having trouble going to sleep, she is waking up frequently at night when she used to sleep through the night and she is dozing off in front of her TV or computer. She has to stay active or she could doze off. She has a variable changing schedule for her job, so her sleep schedule changes often during the week. She states she is not a morning person. - Parasomnia Symptoms Ever been unable to move upon waking from sleep: No Walks in sleep: No Talks in sleep: Yes Ever acted out dreams in sleep: No Ever felt weak in the knees when startled or emotional: No Bothered by creepy, crawly, restless sensations in legs: No Problems with memory or concentration: No Subjective Initial [place] Sleepiness Scale score: 14 (in 2020) Past Medical History Past Medical History: reports: Hypertension, Arthritis, Hypothyroidism, Depression, GERD Social History The patient's occupation is a caregiver. Patient is Single and lives in [place]. Have you smoked in the past 12 months: No Alcohol use: Yes Alcohol amount and frequency: Very little, rarely Caffeine use: Yes Caffeine amount and frequency: 2-3 cans/day, 5-7 days/wk Family History Family history of sleep disordered breathing: Yes Family Hx Sleep Apnea: Father: Snoring Allergies and Home Medications Drug allergies reviewed: Yes (meperidine, Sulfa) Home medication list reviewed: Yes Allergy and home medication list: Albuterol HFA Amlodipine Besylate Atorvastatin Colestipol micronized Diclofenac Sodium topical Gel 1% Escitalopram Fluticasone Levothyroxine Lisinopril Metroprolol Succ ER Pantoprazole Prazosin Pregabalin RA Vitamin D3 Trazadone as needed (not taken for a few months) Review of Systems Weight loss over past 5 years: 30 Cardiovascular: reports: high blood pressure Respiratory: reports: shortness of breath, wheeze Gastrointestinal: reports: heartburn, diarrhea Psychiatric: reports: depression Ear/Nose/Throat: reports: tonsillectomy, wisdom teeth removed Endocrine: reports: thyroid disease Immunologic: reports: sneezing (runny nose) Physical Exam Blood Pressure: 147/81 Cuff size: wrist Heart Rate: 68 O2 Saturation: 98 Height: 5 ft 6 in Weight: 320 lb Body Mass Index: 51.6 BMI Classification: Morbidly Obese Mouth and throat: narrow oropharynx Soft palate: long Hard palate: arched Uvula: normal Uvula visualization: 50% Mallampati Class II Tongue: enlarged in size with teeth suarez on lateral edges Tonsils: absent bilaterally Heart: regular rate and rhythm Lungs: clear bilaterally Impression and Plan 1. Suspected Obstructive Sleep Apnea-Hypopnea Syndrome, as previously diagnosed and as suggested by a history of loud and irregular snoring, frequent awakening during the night, unrefreshed sleep, and excessive daytime sleepiness. She was previously diagnosed but has not been using her machine for 8-10 years. I recommend proceeding to polysomnography to confirm the diagnosis and to assess severity. I informed the patient of what the sleep studies involve and after some discussion, obtained agreement to proceed. The pathophysiology of obstructive sleep apnea-hypopnea syndrome was discussed with the patient and health risks of cardiovascular and cerebrovascular disease if not treated. Risks of drowsy driving discussed in detail and patient advised to avoid long distance driving and to pulling unit floorhand at the first sign of drowsiness. Patient agreed to plan. * Schedule polysomnography/HST and return in 1-2 weeks after the study to discuss result and initiate therapy. * Avoid long distance driving or driving when feeling sleepy. * Avoid alcohol, sedative and muscle relaxant around bedtime. * Attempt to lose weight. * Review instructions provided by trained office staff on how to prepare for the sleep study. * Return for follow-up after sleep study completed. Counseling Topics: Weight loss health impact Visit Type: In Office Time Spent with Patient (minutes): 34 Provider Statement: I spent 100% of the Face to Face Visit with the patient with greater than 50% spent counseling the patient and coordination of care.
[2020-11-18 15:58] VITALS: BP 147/81
== END 2020-11-18 15:03 | disposition home or self-care (01) ==
LOC: SC 15:02
PROVIDERS: ATTEND Nurse Practitioner Family
DX: G47.33 Obstructive sleep apnea (adult) (pediatric) (principal); E66.01 Morbid (severe) obesity due to excess calories; Z68.43 Body mass index [BMI] 50.0-59.9, adult
CPT/HCPCS: 99203; 99212

== ENCOUNTER 2020-11-22 14:57 | Outpatient (CLI) | payer MEDICAID | END 2020-11-22 14:58 | disposition home or self-care (01) | LOC: SC 14:57 | PROVIDERS: ATTEND Nurse Practitioner Family | DX: G47.33 Obstructive sleep apnea (adult) (pediatric) (principal); R09.02 Hypoxemia | CPT/HCPCS: 95806 ==

== ENCOUNTER 2020-12-02 14:41 | Outpatient (CLI) | payer MEDICAID ==
--- NOTE | 2020-12-02 15:11 | SLEEP CARE CONSULTATION ---
Information from patient questionnaire entered by Rosalinda Nielsen. I have reviewed and concur with the information entered by Rosalinda Nielsen. This document represents the service I personally performed and the decisions made by , Roya Grewal ARNP. History of Present Illness Service Date and Time: 12/02/2020 1441 Initial [place] Sleepiness Scale score: 14 (in 2020) Current [place] Sleepiness Scale score: 15 Additional HPI information: MIMI MOORE returns for follow up and results of the recently performed home sleep study. I explained the pathophysiology behind obstructive sleep apnea. We then spent quite a bit of time discussing different treatment options. For mild obstructive sleep apnea, surgery and oral appliance are alternatives to nasal CPAP therapy but in moderate or severe cases, nasal CPAP is the most effective and reliable treatment. Because apnea is primarily in supine position, then positional management therapy could be effective. Methods discussed such as positioning with pillows, using a T-shirt with tennis balls in the back, and shown commercial products that have a pillow format on back to prevent supine sleep. I reviewed the impact of weight changes on sleep apnea and strongly recommended losing weight. Patient counseled not drink alcohol less than 4 hours before bedtime as it can increase snoring and apnea. Patient was cautioned about risks of drowsy driving until sleepiness symptoms resolve. Sleep Study - Results Type of Sleep Study: Home sleep study Prior sleep studies: Yes Year and Where: [place], [place] many yrs ago Polysomnography/Home Sleep Study results: Physician Impression: The quality of the study is good. The length of the study is adequate (> 240 minutes). Please also see the tabulated and graphic data. 1. Obstructive Sleep Apnea-Hypopnea (ICD-10 G47.33), mild, with an AHI of 13.3 /hr and brad SaO2 of 82%. During the study, the patient had 33 apneas (33 obstructive, 0 central, 0 mixed) and 67 hypopneas. The longest episode lasted 58.0 seconds. The respiratory events occurred almost exclusively during supine sleep (supine AHI was 37.3 and non-supine, 4.04). 2. Hypoxemia (ICD-10 R09.02), mild, with the lowest oxygen saturation of 82 % and 59.2 minutes with SaO2 under 90%. Baseline oxygen saturation was normal (Average oxygen saturation was 91%). Allergies and Home Medications Home medication list reviewed: Yes (changed Vit D to morning) Review of Systems Review of systems same as previous: Yes (no changes) Physical Exam Heart Rate: 71 O2 Saturation: 97 Height: 5 ft 6 in Weight: 325 lb Body Mass Index: 52.4 BMI Classification: Morbidly Obese Impression and Plan 1. Obstructive Sleep Apnea-Hypopnea Syndrome, mild, with lowest oxygen saturation of 82%. Obviously this is the cause of the patients symptoms of u nrefreshed sleep, and excessive daytime sleepiness. Since patients apnea is primarily in supine position, patient advised to try positional therapy and agreed with plan. She is also advised to lose weight as this will reduce snoring and apnea. An oral appliance can also be used for snoring but often is not covered by insurance. Follow up is scheduled for one month to check effectiveness and if further evaluation indicated such a repeat study in supine position only to see if additional treatment indicated. * Positional therapy * Attempt to lose weight. * Avoid alcohol consumption near bedtime. * Avoid supine sleep * The patient is again cautioned about driving until sleepiness completely resolves. * Return in one to two months. I will assess response to therapy at that time. Counseling Topics: Weight loss health impact Visit Type: In Office Time Spent with Patient (minutes): 23 Provider Statement: I spent 100% of the Face to Face Visit with the patient with greater than 50% spent counseling the patient and coordination of care.
== END 2020-12-02 14:42 | disposition home or self-care (01) ==
LOC: SC 14:41
PROVIDERS: ATTEND Nurse Practitioner Family
DX: G47.33 Obstructive sleep apnea (adult) (pediatric) (principal); E66.01 Morbid (severe) obesity due to excess calories; Z68.43 Body mass index [BMI] 50.0-59.9, adult
CPT/HCPCS: 99212; 99213

== ENCOUNTER 2020-12-31 11:40 | Outpatient (CLI) | payer MEDICAID ==
[2020-12-31 12:11] LABS: BASOPHILS % (AUTO) 0.2 %; EOSINOPHILS # (AUTO) 0.1 10^3/uL (0.0-0.7); EOSINOPHILS % (AUTO) 1.4 %; HCT - HEMATOCRIT 39.8 % (37.0-47.0); HGB - HEMOGLOBIN 12.7 g/dL (12.0-16.0); LYMPHOCYTES # (AUTO) 1.1 10^3/uL (1.5-3.5); LYMPHOCYTES % (AUTO) 13.1 %; MEAN CORPUSCULAR HGB CONC 31.9 g/dL (32.0-36.0); MEAN CORPUSCULAR VOLUME 84.5 fL (81.0-99.0); MEAN PLATELET VOLUME 9.9 fL (7.9-10.8); MONOCYTES # (AUTO) 0.5 10^3/uL (0.0-1.0); MONOCYTES % (AUTO) 5.4 %; NEUTROPHILS # (AUTO) 6.8 10^3/uL (1.5-6.6); NEUTROPHILS % (AUTO) 79.6 %; PLT - PLATELET COUNT 211 10^3/uL (130-450); RED BLOOD COUNT 4.71 10^6/uL (4.20-5.40); RED CELL DISTRIBUTION WIDTH 15.5 % (12.0-15.0); WHITE BLOOD COUNT 8.6 x10^3/uL (4.8-10.8)
== END 2020-12-31 11:41 | disposition home or self-care (01) ==
LOC: LAB 11:40
PROVIDERS: ATTEND Obstetrics & Gynecology
DX: Z01.812 Encounter for preprocedural laboratory examination (principal); N95.0 Postmenopausal bleeding; Z20.822 Contact with and (suspected) exposure to COVID-19
CPT/HCPCS: 36415; 85025

== ENCOUNTER 2021-01-04 06:54 | Day surgery (SDC) | payer MEDICAID ==
--- NOTE | 2020-12-31 11:28 | CONSULTATION NOTE ---
Consultation Report: Pre-anesthesia evaluation for patient undergoing hysterscopy. and D&C. 60 yr old female with history of hypertension, MARIBETH-no CPAP, stage 3 CKD and BMI >50. States she had an ERCP and lap [place] 15 years ago without issue other than recall during ERCP. Airway show MP2, no neck issues. TMD >3 FB. Counseled patient regarding general anesthesia and possible post op need for CPAP in PACU. Ok to proceed with surgery on 01/04/21
[~2021-01-04 06:54] MED LIST: ACETAMINOPHEN 1,000 MG/100 ML 100 ML IV ONE; CELECOXIB 100 MG CAPSULE PO ONE; GABAPENTIN 400 MG CAPSULE ONE
[2021-01-04] MEDS ORDERED: SILVER NITRATE APPLICATOR TOP ONE (08:06)
[2021-01-04] MEDS ORDERED: BUPIVACAINE 0.5%-EPI 1:200000 PF 30 ML VIAL ONE (08:06)
[2021-01-04] MEDS ORDERED: LACTATED RINGERS 1,000 ML IV ONE ×2 (08:09→10:11)
--- NOTE | 2021-01-04 08:14 | ANESTHESIA ---
Pre-Anesthesia VS, & Labs - Diagnosis post menopausal bleeding - Procedure hysterscopy, D&C Vital Signs: Temp Pulse Resp BP Pulse Ox 36.3 C L 66 16 159/80 H 98 01/04/21 06:35 01/04/21 06:35 01/04/21 06:35 01/04/21 06:35 01/04/21 06:35 Height: 5 ft 6 in Weight (kg): 147.3 kg Body Mass Index: 52.4 BMI Classification: Morbidly Obese - NPO >8 hours - Is Patient ?: No - Lab Results Current Lab Results: Laboratory Tests 01/04/21 08:02: POC Whole Bld Glucose 105 H Lab results reviewed: Yes Home Medications and Allergies Home Medications: Ambulatory Orders Albuterol Sulfate [Proair Hfa Inhaler] 1 - 2 puffs INH Q4H PRN 12/27/20 Atorvastatin Calcium 40 mg PO DAILY 12/27/20 Cholecalciferol [Vitamin D3] 50 mcg PO DAILY 12/27/20 Diclofenac Sodium [Voltaren Arthritis Pain] 2 gm TOP QID PRN 12/27/20 Escitalopram Oxalate [Lexapro] 20 mg PO DAILY 12/27/20 Levothyroxine [Synthroid] 100 mcg PO DAILY 12/27/20 Loperamide [Imodium] 2 mg PO QID PRN 12/27/20 Metoprolol Tartrate [Lopressor] 100 mg PO DAILY 12/27/20 Pantoprazole Sodium [Protonix] 40 mg PO DAILY 12/27/20 Pregabalin [Lyrica] 50 mg PO TID 12/27/20 Albuterol Sulfate [Proair Hfa Inhaler] 1 - 2 puffs INH Q4H PRN 12/27/20 Atorvastatin Calcium 40 mg PO DAILY 12/27/20 Cholecalciferol [Vitamin D3] 50 mcg PO DAILY 12/27/20 Diclofenac Sodium [Voltaren Arthritis Pain] 2 gm TOP QID PRN 12/27/20 Escitalopram Oxalate [Lexapro] 20 mg PO DAILY 12/27/20 Levothyroxine [Synthroid] 100 mcg PO DAILY 12/27/20 Loperamide [Imodium] 2 mg PO QID PRN 12/27/20 Metoprolol Tartrate [Lopressor] 100 mg PO DAILY 12/27/20 Pantoprazole Sodium [Protonix] 40 mg PO DAILY 12/27/20 Pregabalin [Lyrica] 50 mg PO TID 12/27/20 Allergies/Adverse Reactions: Allergies Allergy/AdvReac Type Severity Reaction Status Date / Time meperidine Allergy Itching Verified 12/27/20 16:43 Sulfa (Sulfonamide Allergy Itching Verified 12/30/19 23:27 Antibiotics) Anes History & Medical History - Anesthetic History Anesthesia Complications: reports: Other-see comment (Had recall during EGD) - Medical History Cardiovascular: reports: Hypertension, High cholesterol Pulmonary: reports: Asthma, Sleep apnea (does not use cpap) Gastrointestinal: reports: GERD, Chronic diarrhea Urinary: reports: None Neuro: reports: None Musculoskeletal: reports: Osteoarthritis Endocrine/Autoimmune: reports: HyPOthyroidism Blood Disorders: reports: None Skin: reports: None Smoking Status: Never smoker Psychosocial: reports: Cannabis History of Cancer?: No - Surgical History General: reports: Cholecystectomy, EGD Exam General: Alert, Oriented x3, Cooperative, No acute distress Dental: WNL Mouth Openin Fingerbreadth Neck Mobility: Normal Mallampati classification: II Thyromental Distance: 4-6 cm Mental/Cognitive Status: Alert/Oriented X3, Normal for patient Plan Anesthesia Type: General Consent for Procedure(s) Verified and Reviewed: Yes Code Status: Attempt Resuscitation ASA classification: 3-Severe systemic disease Is this case an emergency?: No
[2021-01-04] MEDS ORDERED: fentaNYL 100 MCG/2 ML VIAL ONE (08:17)
[2021-01-04] MEDS ORDERED: PROPOFOL 200 MG/20 ML VIAL IVP ONE (08:17)
[2021-01-04] MEDS ORDERED: MIDAZOLAM 2 MG/2 ML VIAL ONE (08:17)
[2021-01-04] MEDS ORDERED: LIDOCAINE-MPF 2% 5 ML VIAL ONE (08:17)
[2021-01-04] MEDS ORDERED: SUCCINYLCHOLINE 200 MG/10 ML VIAL ONE (08:17)
[2021-01-04] MEDS ORDERED: ePHEDrine 50 MG/ML VIAL IVP ONE (09:24)
[2021-01-04] MEDS ORDERED: BUPIVACAINE 0.5%-EPI 1:200000 PF 30 ML VIAL SUBQ ONE ×2 (09:36)
[2021-01-04] MEDS ORDERED: ONDANSETRON 4 MG/2 ML VIAL ONE (09:39)
[2021-01-04] MEDS ORDERED: ONDANSETRON 4 MG/2 ML VIAL IVP PRN (10:15)
[2021-01-04] MEDS ORDERED: NALOXONE 0.4 MG/ML VIAL IVP PRN (10:15)
[2021-01-04] MEDS ORDERED: fentaNYL 100 MCG/2 ML VIAL IVP PRN (10:15)
[2021-01-04] MEDS ORDERED: HYDROmorphone 0.5 MG/0.5 ML SYRINGE IVP PRN (10:15)
[2021-01-04] MEDS ORDERED: MORPHINE 2 MG/ML CARPUJECT IVP PRN (10:15)
[2021-01-04] MEDS ORDERED: ATROPINE ABBOJECT 1 MG/10 ML SYRINGE IVP PRN (10:15)
--- NOTE | 2021-01-04 10:24 | OPERATIVE REPORT ---
Operative Report - General Procedure Date: 01/04/21 Planned Procedure: pap smear and hysteroscopy D&C and possible polypectomy Pre-Op Diagnosis: Postmenopausal bleeding and endometrial thickening Procedure Performed: Hysteroscopy D&C with polypectomy Pap smear Post Op Diagnosis: Large cervical polyp, additional endometrial polyp - Procedure Note Primary Surgeon: Tena Pope MD Anesthesia Provider: Laurel Rangel CRNA Anesthesia Technique: General ET tube Pathology: 1) Cervical polyp 2) Uterine contents 3) Pap sent through clinic IV Fluids (mL): 900 Estimated Blood Loss (mL): 10 Urine Output (mL): 75 (in and out catheterization) Indications: Patient is a 60-year-old G1, P0 here for hysteroscopy D&C in the setting of postmenopausal bleeding. Has been in menopause for 6-8 years. About 3 weeks ago, she started bleeding on a daily basis. her underwear was soiled from blood. She had been examined the hospital it felt pinched inside like someone was pinching her nipples and twisting. PELVIC US FOLLOWS: Uterus: Uterus is mildly prominent in size, measuring 10.3 x 4.9 x 5.9 cm. The endonnetriunn measures 17 mm in combined thickness. An apparent polyp can be seen along the anterior fundal region of the endometrial stripe measures up to 1.1 cm. An additional 7 mm cyst can be seen involving the lower uterine segment. Uterine fibroids are seen, which are as follows: Mid posterior uterus, intramural, 6 x 5 x 6 mm Right mid uterus, intramural, a by 3 x 4 mm, with calcification Heterogeneous irregularity can be seen involving the cervix that measures 2 x 2 0.4 x 2.2 cm, with increased vascularity. Ovaries: The ovaries are not well seen and are only seen transvaginally. The right ovary measures 1.9 x 1.6 x 2 cm and the left ovary measures 1.9 x 1.5 x 1.8 cm. No significant ovarian abnormalities are seen. There are less than 12 follicles seen on each side. No adnexal masses are seen. This study is limited by body habitus. IMPRESSION: The endometrial stripe is abnormally thickened (17 mm) in this patient with a presenting history of postmenopausal bleeding. Differential diagnosis includes endometrial hyperplasia and endometrial carcinoma Given the degree of thickening, the decision was made to proceed with hysteroscopy D&C with possible polypectomy. Pap smear to be collected at the same time. Findings: Large smooth polypoid mass protruding through cervix, about 3-4 long and 2 cm wide. Filled with yellowish fluid with thickened larson surrounding a central fluid collection. Uterine cavity with additional polypoid mass incorporating all of the uterine cavity. Once removed, the cavity was smooth and bilateral tubal ostia were noted. Complications: None - Other Other Information/Narrative: Risks benefits and alternatives to the procedure were reviewed. Consent was again confirmed. Patient was taken to the operating room where she underwent general anesthesia. She was positioned in dorsolithotomy position with legs resting in yellowfin stirrups. She was prepped and draped in the usual sterile fashion. Preoperative antibiotics were not indicated. Preoperative checklist was performed. Exam under anesthesia was performed. Speculum was placed in the vagina and the cervix was visualized. Single-tooth tenaculum was placed at the anterior cervical lip. Paracervical block was administered using a total of 20 cc of 0.5% bupivicaine with epinephrine was injected at the 4:00 and 8:00 positions lateral to the portio of the cervix. The cervical polyp was grasped with ring forceps and removed with torsion of the polyp. The polyp was friable and broke off in fragments. The cervical os was adequately dilated at baseline to accommodate the caliber of the diagnostic hysteroscope. The hysteroscope was inserted and findings were noted as above. The hysteroscopic morcellator was inserted through the operative port. The intrauterine polyps were morcellated under direct visualization. Uterine cavity was smooth at close of the procedure. Hysteroscope was removed. Pap smear was collected as the presence of the large polyp precluded pap collection prior to removal. All instruments were removed from the uterus. Tenaculum was removed. Tenaculum sites were noted to be hemostatic. All instruments were removed from the vagina. Procedure was well- tolerated without complication. Fluid deficit: 740 cc (not accounting for large volume spillage on the floor.)
--- NOTE | 2021-01-04 10:39 | ANESTHESIA POST OP EVALUATION ---
Anesthesia Post Eval - Post Anesthesia Eval Vitals: Last Vital Signs Temp 37.3 C 01/04/21 10:30 Pulse 74 01/04/21 10:34 Resp 15 01/04/21 10:34 BP 126/60 01/04/21 10:34 Pulse Ox 98 01/04/21 10:34 CV Function Including HR & BP: Stable Pain Control: Satisfactory Nausea & Vomiting: Negative Mental Status: Baseline Respiratory Status: Airway Patent Hydration Status: Satisfactory Anesthesia Complications: None
[2021-01-04] MEDS ORDERED: LACTATED RINGERS 1,000 ML IV SCH (11:00)
[2021-01-04 11:03] VITALS: BP 120/68
== END 2021-01-04 06:55 | disposition home or self-care (01) ==
LOC: SDS 06:54
PROVIDERS: ATTEND Obstetrics & Gynecology
PROC: 0UB98ZZ Excision of Uterus, Via Natural or Artificial Opening Endoscopic (ICD-10-PCS; 2021-01-04)
PROC: 0UBC8ZZ Excision of Cervix, Via Natural or Artificial Opening Endoscopic (ICD-10-PCS; principal; 2021-01-04 08:30)
DX: N95.0 Postmenopausal bleeding (principal); R93.89 Abnormal findings on diagnostic imaging of other specified body structures; N84.1 Polyp of cervix uteri; N84.0 Polyp of corpus uteri; D25.1 Intramural leiomyoma of uterus; E66.01 Morbid (severe) obesity due to excess calories; Z68.43 Body mass index [BMI] 50.0-59.9, adult; J45.909 Unspecified asthma, uncomplicated; G47.33 Obstructive sleep apnea (adult) (pediatric); Z87.891 Personal history of nicotine dependence
CPT/HCPCS: 58558; A9270; J0131; J0330; J7120

== ENCOUNTER 2021-01-11 14:53 | Outpatient (CLI) | payer MEDICAID ==
--- NOTE | 2021-01-11 15:43 | SLEEP CARE CONSULTATION ---
Information from patient questionnaire entered by Kathleen Mahoney. I have reviewed and concur with the information entered by Kathleen Mahoney. This document represents the service I personally performed and the decisions made by me, Roya Grewal ARNP. History of Present Illness Service Date and Time: 01/11/2021 1453 Previous diagnosis: Mild, Obstructive Sleep Apnea-Hypopnea Syndrome AHI: 13.3 (in 2020) Reason for follow up: other (6 week positional therapy) Prior sleep studies: Yes Year and Where: 2020 - [facility]; [place], [place] many yrs ago Type of Sleep Study: Home sleep study HPI additional information: MIMI MOORE was diagnosed to have mild, AHI 13.3, obstructive sleep apnea- hypopnea syndrome and returns today for positional management therapy 6 week follow-up. CPAP Compliance Data Compliance data discussion: She tried a noodle type that went on her back but this did not work. She is using a pillow wedge that is working better but still finds herself on her back. She is not sure if she is feeling more rested. She is waking up 50/50 on her back or side with using the wedge. She is still getting sleepy when she sits at the computer. She just had surgery two weeks ago and does have anemia in her history. She needs to check with her surgeon for blood work but states she has not noted a difference between before and after surgery in her fatigue. Subjective Initial [place] Sleepiness Scale score: 14 (in 2020) Current [place] Sleepiness Scale score: 17 Allergies and Home Medications Home medication list reviewed: Yes (no new meds) Review of Systems Review of systems same as previous: No (hystotomy DNC) Physical Exam Heart Rate: 59 O2 Saturation: 98 Height: 5 ft 6 in Weight: 326 lb Body Mass Index: 52.6 BMI Classification: Morbidly Obese Impression and Plan 1. Obstructive Sleep Apnea-Hypopnea Syndrome, mild. On positional management therapy, the patient has not yet seen a large difference in her sleepiness. She has not found something that is keeping her on her back most of the time. She is using a wedge that keeps her off her back 50% of the time. We discussed ways to either use a T-shirt with a wedge or balls sewn into it to help to remind her to stay off her back. She has looked online but has not had much luck in finding anything that she can afford. We discussed using a "swimming noodle" alongside her wedge (along her spine)to give it more impact on keeping her off her back. She voiced understanding and agreement with this plan. She will continue to try the positional therapy for now. She will also check in with her surgeon to see if they need to check her blood levels to see if she is anemic as this might be contributing to her fatigue. She was encouraged to continue to try to lose weight as this will help reduce her apneas. I will follow up with her in 3 months. Patient's apnea severity and rationale for treatment to reduce apnea, improve sleep quality and reduce cardiovascular and cerebrovascular events was reviewed. Patient has history of hypertension, gastric reflux, depression, arthritis and hypothyroidism. * Continue positional management therapy * Notify me if snoring with mask or feeling that the pressure is too much or too little * Attempt to lose weight * Call this office if any problems using CPAP * Return for follow up in 3 months, or sooner if concerns arise Counseling Topics: Weight loss health impact Visit Type: In Office Time Spent with Patient (minutes): 28 Provider Statement: I spent 100% of the Face to Face Visit with the patient with greater than 50% spent counseling the patient and coordination of care.
== END 2021-01-11 14:54 | disposition home or self-care (01) ==
LOC: SC 14:53
PROVIDERS: ATTEND Nurse Practitioner Family
DX: G47.33 Obstructive sleep apnea (adult) (pediatric) (principal); E66.01 Morbid (severe) obesity due to excess calories; Z68.43 Body mass index [BMI] 50.0-59.9, adult
CPT/HCPCS: 99212; 99213

== ENCOUNTER 2021-02-18 19:42 | Outpatient (CLI) | payer MEDICAID | END 2021-02-18 23:59 | disposition home or self-care (01) | LOC: LAB.N 19:42 | PROVIDERS: ATTEND Emergency Medicine | DX: R06.02 Shortness of breath (principal); J45.901 Unspecified asthma with (acute) exacerbation; Z20.822 Contact with and (suspected) exposure to COVID-19 ==

== ENCOUNTER 2021-02-21 15:14 | Outpatient (CLI) | payer MEDICARE ==
[2021-02-21 16:17] LABS: THYROID STIMULATING HORMONE 5.86 uIU/mL (0.34-5.60)
[2021-02-21 16:19] LABS: FREE T4 (FREE THYROXINE) 1.02 ng/dL (0.58-1.64)
[2021-02-21 16:45] LABS: FOLLICLE STIMULATING HORMONE 37.56 mIU/mL
== END 2021-02-21 15:15 | disposition home or self-care (01) ==
LOC: LAB 15:14
PROVIDERS: ATTEND Obstetrics & Gynecology
DX: N95.0 Postmenopausal bleeding (principal); F32.9 Major depressive disorder, single episode, unspecified; Z13.21 Encounter for screening for nutritional disorder
CPT/HCPCS: 36415; 82306; 82670; 83001; 84439; 84443

== ENCOUNTER 2021-04-12 15:09 | Outpatient (CLI) | payer MEDICAID, MEDICARE ==
--- NOTE | 2021-04-12 15:37 | SLEEP CARE CONSULTATION ---
Information from patient questionnaire entered by Kathleen Mahoney. I have reviewed and concur with the information entered by Kathleen Mahoney. This document represents the service I personally performed and the decisions made by me, Roya Grewal ARNP. History of Present Illness Service Date and Time: 04/12/2021 1509 Previous diagnosis: Mild, Obstructive Sleep Apnea-Hypopnea Syndrome AHI: 13.3 (in 2020) Reason for follow up: three month (positional therapy) Prior sleep studies: Yes Year and Where: 2020 - [facility]; [place], [place] many yrs ago Type of Sleep Study: Home sleep study HPI additional information: MIMI MOORE was diagnosed to have mild, AHI 13.3, obstructive sleep apnea- hypopnea syndrome and returned today for Positional therapy three month follow- up. CPAP Compliance Data Compliance data discussion: She states she is always sleepy. She will doze off at her computer. She is not able to stay on her side and finds herself on her back most nights. Subjective Initial [place] Sleepiness Scale score: 14 (in 2020) Current [place] Sleepiness Scale score: 12 Allergies and Home Medications Home medication list reviewed: Yes (no changes) Review of Systems Review of systems same as previous: Yes (no changes) Physical Exam Heart Rate: 69 O2 Saturation: 97 Height: 5 ft 6 in Weight: 333 lb Weight change since last visit: 7 pound gain Body Mass Index: 53.7 BMI Classification: Morbidly Obese Impression and Plan 1. Obstructive Sleep Apnea-Hypopnea Syndrome, mild. On positional therapy, the p atient has not been able to get better sleep quality or feel more rested overall. Patient has tried a CPAP in the past with limited results. She states she would like to try it again since positional therapy does not seem to be working for her. I will write a prescription to start her on CPAP. We discussed compliance and a compliance information sheet will be given to the patient upon her leaving the office today. Patient's apnea severity and rationale for treatment to reduce apnea, improve sleep quality and reduce cardiovascular and cerebrovascular events was reviewed. Patient has a history of hypertension, arthritis, gastric reflux, depression and hypothryoidism. * Nasal auto CPAP therapy, pressure at 4-15 cm H2O. * Attempt to lose weight. * Avoid alcohol consumption near bedtime. * Avoid supine sleep until using CPAP. * The patient is again cautioned about driving until sleepiness completely resolves. * Return one month after CPAP obtained. I will assess response to therapy and compliance at that time. Counseling Topics: Weight loss health impact Visit Type: In Office Time Spent with Patient (minutes): 20 Provider Statement: I spent 100% of the Face to Face Visit with the patient with greater than 50% spent counseling the patient and coordination of care.
== END 2021-04-12 15:10 | disposition home or self-care (01) ==
LOC: SC 15:09
PROVIDERS: ATTEND Nurse Practitioner Family
DX: G47.33 Obstructive sleep apnea (adult) (pediatric) (principal); E66.01 Morbid (severe) obesity due to excess calories; Z68.43 Body mass index [BMI] 50.0-59.9, adult
CPT/HCPCS: 99213; G0463; 99212

== ENCOUNTER 2021-07-13 14:48 | Outpatient (CLI) | payer MEDICAID ==
--- NOTE | 2021-07-13 15:31 | SLEEP CARE CONSULTATION ---
Information from patient questionnaire entered by Maik Palencia MA. I have reviewed and concur with the information entered by Maik Palencia MA. This document represents the service I personally performed and the decisions made by , Roya Grewal ARNP. History of Present Illness Service Date and Time: 07/13/2021 1448 Previous diagnosis: Mild, Obstructive Sleep Apnea-Hypopnea Syndrome AHI: 13.3 (in 2020) Reason for follow up: first compliance (05/31) Equipment type: CPAP Equipment obtained from: Other ([facility]; got initial supplies) Mask style: Nasal (over the nose) Backup mask available: No (will keep old mask when replaced) Last cushion change: 1 month Prior sleep studies: Yes Year and Where: 2020 - [facility]; [place], [place] many yrs ago Type of Sleep Study: Home sleep study HPI additional information: MIMI MOORE was diagnosed to have mild, AHI 13.3, obstructive sleep apnea- hypopnea syndrome and returned today for CPAP therapy first compliance follow- up. Sleep Study - Results Type of Sleep Study: Home sleep study Prior sleep studies: Yes Year and Where: 2020 - [facility]; [place], [place] many yrs ago CPAP Compliance Data - Data Reviewed with Patient Average duration of nightly device use: 5 HOURS 58 MINUTES Compliance rate %: 71 Current pressure setting (cmH2O): 4-15 (median 7.3, avg 10.7, max 11.7) Average residual AHI: 0.2 Central apnea: 0 Obstructive apnea: .2 Subjective Missed days of use due to: reports: other Patient concerns: reports: other (mask sticks to my face). denies: aerophagia, mask discomfort, air blowing in eyes, mask leak noise, condensation in mask/hose, nasal congestion, dry mouth, nose, throat, epistaxis Observed to snore while using device: No Current pressure setting perceived as: comfortable On therapy, patient: reports: sleeping better, awakening more refreshed, being more awake and alert during the day, more rested overall. denies: drowsiness while driving Initial [place] Sleepiness Scale score: 14 (in 2020) Current [place] Sleepiness Scale score: 15 (in 2020) Allergies and Home Medications Home medication list reviewed: Yes (no changes) Review of Systems Review of systems same as previous: Yes (no changes) Physical Exam Vital signs obtained and entered by: CINDA RUGGIERO Heart Rate: 63 O2 Saturation: 96 (with mask) Height: 5 ft 6 in Weight: 335 lb (with winter clothes) Body Mass Index: 54.1 BMI Classification: Morbidly Obese Impression and Plan 1. Obstructive Sleep Apnea-Hypopnea Syndrome, mild, with good treatment compliance and excellent apnea control. On CPAP therapy, the patient has better sleep quality. Patient's only complaint is that of mask that goes over her nose will stick to her skin can sometimes be difficult to pull off and sore. She also gets some lines on her face. I discussed with her using barriers that she can obtain either through her DME supplier or through a company called [employer] who makes them to order. She voiced understanding. The patients pressure will be changed to autoCPAP 8-12 cmH20 to reflect the pressures being used. Patient advised to contact me if pressure change is uncomfortable so that it can be adjusted. Goals for apnea control discussed. Patient's apnea severity and rationale for treatment to reduce apnea, improve sleep quality and reduce cardiovascular and cerebrovascular events was reviewed. I also reviewed the bene fit of consistent device use of CPAP for hypertension, gastric reflux and depression. Patient was encouraged to lose weight for their overall health and to reduce apneas. * Change auto CPAP pressure to 8-12 cmH2O * Notify me if snoring with mask or feeling that the pressure is too much or too little * Attempt to lose weight * Call this office if any problems using CPAP * Return for follow up in 1-2 months, or sooner if concerns arise Counseling Topics: Spare mask, Weight loss health impact Visit Type: In Office Time Spent with Patient (minutes): 22 Provider Statement: I spent 100% of the Face to Face Visit with the patient with greater than 50% spent counseling the patient and coordination of care.
== END 2021-07-13 14:49 | disposition home or self-care (01) ==
LOC: SC 14:48
PROVIDERS: ATTEND Nurse Practitioner Family
DX: G47.33 Obstructive sleep apnea (adult) (pediatric) (principal); E66.01 Morbid (severe) obesity due to excess calories; Z68.43 Body mass index [BMI] 50.0-59.9, adult
CPT/HCPCS: 99212; 99213

== ENCOUNTER 2021-08-17 15:20 | Outpatient (CLI) | payer MEDICAID ==
[2021-08-17 16:09] VITALS: BP 123/65
--- NOTE | 2021-08-17 16:09 | SLEEP CARE CONSULTATION ---
Information from patient questionnaire entered by Maik Palencia MA. I have reviewed and concur with the information entered by Maik Palencia MA. This document represents the service I personally performed and the decisions made by , Roya Grewal ARNP. History of Present Illness Service Date and Time: 08/17/2021 1520 Previous diagnosis: Mild, Obstructive Sleep Apnea-Hypopnea Syndrome AHI: 13.3 (in 2020) Reason for follow up: one month (PRESSURE CHANGE) Equipment type: CPAP Equipment obtained from: Other ([facility]; has not getting supplies) Mask style: Nasal Mask brand: Respironics (Wisp) Backup mask available: No (will keep old mask when replaced) Prior sleep studies: Yes Year and Where: 2020 - [facility]; [place], [place] many yrs ago Type of Sleep Study: Home sleep study HPI additional information: MIMI MOORE was diagnosed to have mild, AHI 13.3, obstructive sleep apnea- hypopnea syndrome and returned today for CPAP therapy one month follow-up. Sleep Study - Results Type of Sleep Study: Home sleep study Prior sleep studies: Yes Year and Where: 2020 - [facility]; [place], [place] many yrs ago CPAP Compliance Data - Data Reviewed with Patient Average duration of nightly device use: 6 HOURS 33 MINUTES Compliance rate %: 93 Current pressure setting (cmH2O): 8-12 Average residual AHI: 0.2 Central apnea: 0 Obstructive apnea: .1 Subjective Missed days of use due to: reports: illness Patient concerns: reports: mask leak noise, dry mouth, nose, throat (very little nightly; dry in the morning), other (skin irritation on top of nose and pressure on upper teeth). denies: aerophagia, mask discomfort, air blowing in eyes, condensation in mask/hose, nasal congestion, epistaxis Observed to snore while using device: No Current pressure setting perceived as: comfortable On therapy, patient: reports: other (hard to say, keeping regular schedule). denies: drowsiness while driving Initial [place] Sleepiness Scale score: 14 (in 2020) Current [place] Sleepiness Scale score: 10 (2021) Allergies and Home Medications Known drug allergies: Yes Drug allergies reviewed: Yes Home medication list reviewed: Yes (no changes) Review of Systems Review of systems same as previous: Yes (no changes) Physical Exam Vital signs obtained and entered by: Frederick PALENCIA CMA [facility] Blood Pressure: 123/65 Heart Rate: 62 O2 Saturation: 94 (WITH A PAPER MASK) Height: 5 ft 6 in Weight: 332 lb (PT NOT EATING MUCH, WITH CLOTHES) Weight change since last visit: 3 lb loss Body Mass Index: 53.6 BMI Classification: Morbidly Obese Impression and Plan 1. Obstructive Sleep Apnea-Hypopnea Syndrome, mild, with good treatment compliance and excellent apnea control. Patient has been dealing with an increase in depression and respiratory issue (shortness of breath) for which she has an appointment to see her PCP next week. She has not really been sleeping well due to her anxieties/depression. I encouraged her to make sure she follows up with her PCP for help. She voiced understanding. She also has had some skin irritation and discomfort with the Dreamwear Wisp nasal mask. I showed her some different masks since she would like to get one with the hose in the front and not on top of her head. She liked the look of the F&P Brevida. I will write for a mask refitting to see if she can get a change in the mask/headgear. She has not gotten any supplies yet. I advised her to give them a call to obtain supplies. They will be contacting her about the mask refitting. She voice understanding. No pressure changes needed. Patient's apnea severity and rationale for treatment to reduce apnea, improve sleep quality and reduce cardiovascular and cerebrovascular events was reviewed. I also reviewed the benefit of consistent device use of CPAP for hypertension, gastric reflux and depression. Patient has lost weight (3 pounds). Obesity increases the risk of apnea, CPAP pressure requirements and overall health risks especially cardiovascular and diabetes. Thus patient is advised to continue to lose weight. Weight loss can be done with reducing portion size, reducing refined foods and balancing content with vegetables, fruit and whole grain foods. In addition, patient encouraged to get regular exercise. Patient was encouraged to continue to try to lose weight for their overall health and to reduce apneas. * Continue auto CPAP pressure at 8-12 cmH2O * Mask refitting for F&P Brevida nasal mask * Adjust ramp time to 15-20 minutes * Notify me if snoring with mask or feeling that the pressure is too much or too little * Attempt to lose weight * Call this office if any problems using CPAP * Return for follow up in 3 months, or sooner if concerns arise Counseling Topics: Spare mask, Weight loss health impact Visit Type: In Office Time Spent with Patient (minutes): 25 Provider Statement: I spent 100% of the Face to Face Visit with the patient with greater than 50% spent counseling the patient and coordination of care.
== END 2021-08-17 15:21 | disposition home or self-care (01) ==
LOC: SC 15:20
PROVIDERS: ATTEND Nurse Practitioner Family
DX: G47.33 Obstructive sleep apnea (adult) (pediatric) (principal); E66.01 Morbid (severe) obesity due to excess calories; Z68.43 Body mass index [BMI] 50.0-59.9, adult
CPT/HCPCS: 99212; 99213

== ENCOUNTER 2021-08-26 16:16 | Outpatient (CLI) | payer MEDICAID ==
[2021-08-26 21:16] LABS: HCT - HEMATOCRIT 40.1 % (37.0-47.0); HGB - HEMOGLOBIN 12.5 g/dL (12.0-16.0); MEAN CORPUSCULAR HEMOGLOBIN 27.2 pg (27.0-31.0); MEAN CORPUSCULAR HGB CONC 31.2 g/dL (32.0-36.0); MEAN CORPUSCULAR VOLUME 87.2 fL (81.0-99.0); MEAN PLATELET VOLUME 11.1 fL (7.9-10.8); RED BLOOD COUNT 4.6 10^6/uL (4.20-5.40); RED CELL DISTRIBUTION WIDTH 15.5 % (12.0-15.0); WHITE BLOOD COUNT 8.1 x10^3/uL (4.8-10.8)
[2021-08-26 21:45] LABS: BUN - BLOOD UREA NITROGEN 17 mg/dL (6-20); CALCIUM 8.9 mg/dL (8.5-10.3); CARBON DIOXIDE - CO2 29 mmol/L (21-32); CHLORIDE 103 mmol/L (101-111); CHOL/HDL RATIO 3.9 (<4.4); CHOLESTEROL 116 mg/dL; CREATININE 1.1 mg/dL (0.4-1.0); GFR - MDRD 51 (>89); GLUCOSE 100 mg/dL (70-100); HDL CHOLESTEROL 30 mg/dL; LDL CHOLESTEROL,CALCULATED 47 mg/dL; LDL/HDL RATIO 1.6 (<4.4); POTASSIUM 4.3 mmol/L (3.5-5.0); SODIUM 141 mmol/L (135-145); TRIGLYCERIDES 193 mg/dL; VLDL CHOLESTEROL 39 mg/dL
[2021-08-26 21:58] LABS: THYROID STIMULATING HORMONE 4.22 uIU/mL (0.34-5.60)
== END 2021-08-26 16:17 | disposition home or self-care (01) ==
LOC: LAB.N 16:16
PROVIDERS: ATTEND Family Medicine
DX: R06.02 Shortness of breath (principal); E78.1 Pure hyperglyceridemia; E03.9 Hypothyroidism, unspecified; Z20.822 Contact with and (suspected) exposure to COVID-19
CPT/HCPCS: 36415; 80048; 80061; 83721; 83880; 84443; 85027

== ENCOUNTER 2021-08-26 16:21 | Outpatient (CLI) | payer MEDICAID ==
--- NOTE | 2021-08-26 20:12 | XRAY Report ---
PROCEDURE: Chest 2 View X-Ray INDICATIONS: SOB TECHNIQUE: 2 view(s) of the chest. COMPARISON: CXR 03/18/2020. FINDINGS: Surgical changes and devices: None. Lungs and pleura: No pleural effusions or pneumothorax. Lungs appear clear. No consolidation. Mediastinum: Mediastinal contours are normal. Heart size is normal. Bones and chest wall: No suspicious bony abnormalities. Soft tissues appear unremarkable. IMPRESSION: No acute cardiopulmonary abnormality identified. Reviewed by: Lake Dalal MD on 08/26/2021 8:10 PM PST Approved by: Lake Dalal MD on 08/26/2021 8:10 PM PST Station ID: [id number]
== END 2021-08-26 16:22 | disposition home or self-care (01) ==
LOC: DI.N 16:21
PROVIDERS: ATTEND Family Medicine
DX: R06.02 Shortness of breath (principal); E78.1 Pure hyperglyceridemia; E03.9 Hypothyroidism, unspecified; Z20.822 Contact with and (suspected) exposure to COVID-19
CPT/HCPCS: 36415; 80048; 80061; 83721; 83880; 84443; 85027

== ENCOUNTER 2021-10-18 12:17 | Outpatient (CLI) | payer MEDICAID ==
--- NOTE | 2021-10-18 13:02 | CARDIAC PROCEDURE NOTE ---
Stress Test Report Service Date: 10/18/21 Service Time: 12:30 Ordering Provider: Laith Mahajan DO Indication for Test: Assess for ischemic contribution to exertional dyspnea. Significant Medical History: Kathleen has a long history of hypertension, morbid obesity, asthma and treatment over the past several months with CPAP for obstructive sleep apnea. 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 She has had chronic exertional dyspnea, with some benefit with prn of albuterol, but in late July during the several day stretch of very cold weather, she experienced an episode of severe exertional dyspnea, that took a long time to resolve. Since that time she has had worsening exertional tolerance, with a lower threshold to dyspnea, though she denies resting dyspnea, orthopnea and ankle edema. She was started on regular use of Q-gerson, with possibly some benefit in terms of her breathing. She denies experiencing chest discomfort with her shortness of breath. Cardiac Risk Factors: Positive for hypertension, hyperlipidemia, borderline diabetes and minor family history of coronary heart disease in patient's maternal grandmother. She smoked tobacco for a period of weeks as a young woman but quit decades ago. Type of Stress Test: Pharmacologic Stress Test with MPI Pharmacologic Agent: Lexiscan Procedure: -Pharmacologic Stress Test- After signing informed consent, the patient performed a walking Lexiscan pharmacologic stress test. After obtaining resting vital signs and EKG (resting), the patient walked for 2 minutes (without elevation) at 0.8 mph ("baseline") followed by injection of Lexiscan and high dose 99Tc-Myoview with an additional 2 minutes of walking ("peak" reassessment) followed by monitoring for an additional 4 minutes ("recovery"). The test was terminated due to completing the protocol. Resting HR: 66 Baseline HR: 83 Peak HR: 89 Normal HR response. Resting BP: 165/93 Baseline BP: 174/93 Peak BP: 136/94 Hypertensive at rest with normal BP response to walking/Lexiscan; note that we do not have a large enough cuff to measure typical brachial BPs, so cuff was placed on the forearm with radial artery measurements. Rhythm during testing: Sinus rhythm throughout. Symptoms: She experienced mild dyspnea with walking, possibly worse after Lexiscan injection; she did not describe experiencing any chest discomfort. EKG at rest showed normal sinus rhythm, with abnormal R-wave progression V1-V3 (decrease in R-wave magnitude in V2), otherwise normal EKG at peak stress showed no ischemia by EKG criteria. Because this is to be a 2-day study due to patient's size, she will undergo post-stress SPECT imaging today, and she will return for repeat injection and repeat SPECT imaging (rest phase) tomorrow. Nuclear image interpretation will be reported separately. IEliot MD, was present throughout this walking Lexiscan stress study and supervised it in its entirety. Summary: 1) Abnormal resting EKG. 2) Adequate stress was likely achieved. 3) Hypertensive at rest with physiologic BP response to combination of walking and pharmacologic stress agent. 4) No ischemic changes by EKG criteria were seen at peak stress. 5) Analysis of gated nuclear images reveals normal left ventricular size and systolic function; SPECT analysis reveals normal perfusion of the left ventricle at rest and following treadmill stress, thus no evidence of prior infarct or inducible ischemia. See separate report for more detail. CONCLUSIONS: 1) Low risk walking Lexiscan stress Cardio perfusion imaging study with no evidence of ischemia by EKG or perfusion imaging. 2) Given her elevated blood pressures in spite of taking all medications on her normal schedule, she was encouraged to redouble efforts to assess blood pressure at home and report the results to her care team.
[2021-10-18] MEDS ORDERED: REGADENOSON 0.4 MG/5 ML SYRINGE IVP ONE ×2 (13:48→15:02)
--- NOTE | 2021-10-19 13:45 | Nuclear Medicine Report ---
PROCEDURE: Rest and exercise myocardial perfusion SPECT with gated imaging and ejection fraction INDICATIONS: SOB RADIOPHARMACEUTICAL: 26.1 mCi Tc-99m Myoview IV at rest and 26.1 mCi Tc-99m Myoview IV at peak exerc ise. 2-protocol was performed. TECHNIQUE: Radiopharmaceutical was injected at peak stress test, and also at rest. SPECT images wer e obtained. SPECT myocardial perfusion images were displayed in short axis, horizontal long axis, an d vertical long axis views. Gated images were reviewed using Auto[employer] software. COMPARISON: None available. FINDINGS: Raw data: There is good myocardial labeling by radiotracer. No significant motion artifacts. Lung- to-heart ratio is 0.3 (normal is less than 0.46 for tetrafosmin tracer). Left ventricle function: Gated images demonstrate normal left ventricle wall thickening. No segment al wall motion abnormality. No transient ischemic dilation; TID is 0 point (normal less than 1.30). The left ventricle resting end-diastolic volume is 83 mL. Left ventricle stress ejection fraction i s 70%; normal values are above 45%. Myocardial perfusion: There is normal distribution of activity in the left and right ventricular amandeep cardium. No fixed or reversible perfusion defects. IMPRESSION: 1. No evidence of myocardial ischemia. 2. Normal left ventricular function. PQRS ATTESTATIONS: Measure 322 - Is this imaging test primarily performed on a low-risk surgery patient for preoperative evaluation within 30 days preceding their low-risk non-cardiac surgery? Low-risk surgery is defined as cardiac or myocardial infarction less than 1%, including (but not limited to) endoscopic pr ocedures, superficial procedures, cataract surgery, and excisional breast surgery: Answer: No Measure 323 - Is this imaging test performed primarily for the monitoring of an asymptomatic patient who had percutaneous coronary intervention on the visit date or within 2 years of the visit date? An swer: No Measure 324 - Is this imaging test performed primarily for the initial detection and risk assessment on an asymptomatic, low coronary heart disease patient? Low CHD risk definition = clinicians should consider the maximum number of available patient factors used to estimate risk based on [place] (A TP III criteria), typically age, gender, diabetes, smoking status, and use of blood pressure medicati on, and integrate age appropriate estimates for missing elements, such as LDL or standard blood press ure. Answer: No Reviewed by: Jeremias Valdes MD on 10/19/2021 1:43 PM PDT Approved by: Jeremias Valdes MD on 10/19/2021 1:43 PM PDT Station ID: [id number]
== END 2021-10-18 12:18 | disposition home or self-care (01) ==
LOC: DI 12:17
PROVIDERS: ATTEND Family Medicine
DX: R06.02 Shortness of breath (principal); I10 Essential (primary) hypertension; E78.1 Pure hyperglyceridemia; E66.01 Morbid (severe) obesity due to excess calories; Z87.891 Personal history of nicotine dependence; Z82.49 Family history of ischemic heart disease and other diseases of the circulatory system; G47.30 Sleep apnea, unspecified; J45.909 Unspecified asthma, uncomplicated; R94.31 Abnormal electrocardiogram [ECG] [EKG]
CPT/HCPCS: 78452; 93016; 93017; 93018; A9500; J2785

== ENCOUNTER 2021-11-16 16:15 | Outpatient (CLI) | payer MEDICAID ==
--- NOTE | 2021-11-16 16:04 | SLEEP CARE CONSULTATION ---
Information from patient questionnaire entered by Maik Palencia MA. I have reviewed and concur with the information entered by Maik Palencia MA. This document represents the service I personally performed and the decisions made by , Roya Grewal ARNP. History of Present Illness Service Date and Time: 11/16/2021 1540 Previous diagnosis: Mild, Obstructive Sleep Apnea-Hypopnea Syndrome AHI: 13.3 (in 2020) Reason for follow up: three month Equipment type: CPAP Equipment obtained from: Other ([facility]) Mask style: Nasal (over the nose) Backup mask available: No (will need to keep old mask when replaced) Prior sleep studies: Yes Year and Where: 2020 - [facility]; [place], [place] many yrs ago Type of Sleep Study: Home sleep study HPI additional information: MIMI MOORE was diagnosed to have mild, AHI 13.3, obstructive sleep apnea- hypopnea syndrome and returns via video telehealth visit today for CPAP therapy three month follow-up. Sleep Study - Results Type of Sleep Study: Home sleep study Prior sleep studies: Yes Year and Where: 2020 - [facility]; [place], [place] many yrs ago CPAP Compliance Data - Data Reviewed with Patient Average duration of nightly device use: 6 HOURS 12 MINUTES Compliance rate %: 81 Current pressure setting (cmH2O): 8-12 Average residual AHI: 0.3 Central apnea: .0 Obstructive apnea: .2 Average large leak: 7.4 Subjective Patient concerns: reports: dry mouth, nose, throat (little bit). denies: aerophagia, mask discomfort, air blowing in eyes, mask leak noise, condensation in mask/hose, nasal congestion, epistaxis, other Observed to snore while using device: No Current pressure setting perceived as: comfortable On therapy, patient: reports: sleeping better, awakening more refreshed, being more awake and alert during the day. denies: more rested overall, drowsiness while driving Initial [place] Sleepiness Scale score: 14 (in 2020) Current [place] Sleepiness Scale score: 14 Allergies and Home Medications Home medication list reviewed: Yes (no changes) Allergy and home medication list: Allergies meperidine Allergy (Verified 12/27/20 16:43) Itching Sulfa (Sulfonamide Antibiotics) Allergy (Verified 12/30/19 23:27) Itching Review of Systems Review of systems same as previous: Yes (no changes) Physical Exam Vital signs obtained and entered by: Telehealth visit Height: 5 ft 6 in Impression and Plan 1. Obstructive Sleep Apnea-Hypopnea Syndrome, mild, with good treatment compliance and excellent apnea control. On CPAP therapy, the patient has better sleep quality. She knows that she needs to get more sleep but she stays up late at night even when she has to get up early for work. I advised her to try to get more sleep. Most people require 7-9 hours of sleep for optimal mental and physical function. Less than 5-6 hours of sleep consistently can contribute to health risks and mortality. Thus patient is advised to strive for a minimum of 7 hours of sleep. Methods discussed on how patient can achieve within their lifestyle. She has also had some occasional dry mouth. Oral dryness can be reduced by adjusting humidity setting higher or heated hose lower or by adjusting both settings. Verbal instructions given on how to change humidity and heated hose settings with rationale explaining why to change. Patient's apnea severity and rationale for treatment to reduce apnea, improve sleep quality and reduce cardiovascular and cerebrovascular events was reviewed. I also reviewed the benefit of consistent device use of CPAP for hypertension, gastric reflux and depression. Patient advised to try to lose weight. Weight loss will help her improve her overall health and reduce apneas. She voiced understanding. * Continue auto CPAP pressure at 8-12 cmH2O * Notify me if snoring with mask or feeling that the pressure is too much or too little * Attempt to lose weight * Call this office if any problems using CPAP * Return for follow up in 6 months, or sooner if concerns arise Counseling Topics: Spare mask, Weight loss health impact Visit Type: Telehealth Video (EXPOSED TO [employer], ,) Video Type: Doximity Patient Location: work Location of Provider: Office Patient agrees and consents to this telehealth visit type: Yes Patient agrees to have their insurance billed: Yes Time Spent with Patient (minutes): 22 Provider Statement: I spent 100% of the Telehealth Video Call with the patient with greater than 50% spent counseling the patient and coordination of care.
== END 2021-11-16 16:16 | disposition home or self-care (01) ==
LOC: SC 16:15
PROVIDERS: ATTEND Nurse Practitioner Family
DX: G47.33 Obstructive sleep apnea (adult) (pediatric) (principal)

== ENCOUNTER 2022-09-25 14:18 | Emergency (ER) | payer MEDICAID ==
--- NOTE | 2022-09-25 15:04 | XRAY Report ---
PROCEDURE: Knee 4 View LT INDICATIONS: Trauma TECHNIQUE: 5 views of the left knee(s) were acquired. COMPARISON: 09/16/2020. FINDINGS: Bones: No fractures or dislocations. No suspicious bony lesions. Tricompartment osteophytes and m edial compartment joint space loss, not significantly changed. Soft tissues: Small joint effusion. No suspicious soft tissue calcifications. IMPRESSION: Degenerative arthritis. No evidence acute bony abnormality of the left knee. If clinical suspicion and/or symptoms persist, further assessment with repeat plain films or advanced imaging (e.g., CT, MRI, or bone scan) may be helpful for further assessment. Reviewed by: Gary Plummer MD on 09/25/2022 3:03 PM PST Approved by: Gary Plummer MD on 09/25/2022 3:03 PM PST Station ID: [id number]
--- NOTE | 2022-09-25 17:15 | ED Physician Documentation ---
History of Present Illness - Stated complaint Stated Complaint: KNEE PX S/P FALL - Chief complaint Chief Complaint: Trauma Ext - History obtained from History obtained from: Patient - History of Present Illness Timing: Yesterday Pain level max: 8 Pain level now: 8 - Additonal information Additional information: 62-year-old female presents to the emergency department after ground-level fall yesterday. She accidentally slipped, landing on the left knee. Continued pain today. Worse with walking, better with rest. No swelling. No numbness or tingling. No relief with Tylenol. No head, neck, back pain. No loss of consciousness. No head injury. Review of Systems Constitutional: denies: Fever, Chills GI: denies: Vomiting, Diarrhea Musculoskeletal: denies: Neck pain, Back pain PD PAST MEDICAL HISTORY - Past Medical History Cardiovascular: Hypertension, High cholesterol Neuro: None Endocrine/Autoimmune: HyPOthyroidism Psych: Depression Musculoskeletal: Osteoarthritis - Past Surgical History Past Surgical History: No General: Cholecystectomy - Present Medications Home Medications: Ambulatory Orders Medication Instructions Recorded Confirmed Amlodipine Besylate 5 mg PO DAILY #20 tablet 07/03/19 12/27/20 Colestipol HCl [Colestid] 1 gm PO BID #20 tablet 07/03/19 12/27/20 lisinopriL [Lisinopril] 40 mg PO DAILY #20 tablet 07/03/19 12/27/20 Albuterol Sulfate [Proair Hfa 1 - 2 puffs INH Q4H PRN 12/27/20 12/27/20 Inhaler] Atorvastatin Calcium 40 mg PO DAILY 12/27/20 12/27/20 Cholecalciferol [Vitamin D3] 50 mcg PO DAILY 12/27/20 12/27/20 Diclofenac Sodium [Voltaren 2 gm TOP QID PRN 12/27/20 12/27/20 Arthritis Pain] Escitalopram Oxalate [Lexapro] 20 mg PO DAILY 12/27/20 12/27/20 Levothyroxine [Synthroid] 100 mcg PO DAILY 12/27/20 12/27/20 Loperamide [Imodium] 2 mg PO QID PRN 12/27/20 12/27/20 Metoprolol Tartrate [Lopressor] 100 mg PO DAILY 12/27/20 12/27/20 Pantoprazole Sodium [Protonix] 40 mg PO DAILY 12/27/20 12/27/20 Pregabalin [Lyrica] 50 mg PO TID 12/27/20 12/27/20 Acetaminophen [Acetaminophen Extra 1,000 mg PO Q8H PRN #60 tablet 01/04/21 Strength] Docusate Sodium 100Mg Capsule 100 - 200 mg PO BID PRN #60 cap 01/04/21 [Colace 100Mg Capsule] oxyCODONE [Roxicodone] 2.5 - 5 mg PO Q4H PRN #10 tablet 01/04/21 HYDROcod/ACETAM 5/325 [[place] 5/325] 1 - 2 ea PO Q6H PRN #14 tablet 09/25/22 - Allergies Allergies/Adverse Reactions: Allergies Allergy/AdvReac Type Severity Reaction Status Date / Time meperidine Allergy Itching Verified 09/25/22 14:28 Sulfa (Sulfonamide Allergy Itching Verified 09/25/22 14:28 Antibiotics) - Social History Does the pt smoke?: No Smoking Status: Never smoker Does the pt drink ETOH?: Yes Does the pt have substance abuse?: No - Immunizations Immunizations are current?: Yes - POLST Patient has POLST: No PD ED PE NORMAL - Vitals Vital signs reviewed: Yes - General General: Alert and oriented X 3, No acute distress, Well developed/nourished - HEENT HEENT: Moist mucous membranes - Neck Neck: Supple, no meningeal sign - Derm Derm: Warm and dry - Extremities Extremities: Other (Tender to palpation along the tibial plateau of the left knee. No joint effusion. Neurovascular intact. ACL, MCL, PCL, LCL are intact. ) - Neuro Neuro: Alert and oriented X 3 - Psych Psych: Normal mood, Normal affect Results - Vitals Vitals: Vital Signs - 24 hr 09/25/22 09/25/22 14:25 17:37 Temperature 36.8 C Heart Rate 73 69 Respiratory 24 18 Rate Blood Pressure 129/68 146/86 H O2 Saturation 95 98 Oxygen O2 Source Room air - Rads (name of study) Left knee x-ray Radiology: Final report received, See rad report PD Medical Decision Making - ED course Complexity details: reviewed results, considered differential, d/w patient ED course: No acute findings on left knee x-ray. Given a walker. We will prescribe pain medication for home. No significant effusion. Likely knee contusion. Ambulating well. Patient counseled regarding signs and symptoms for which I believe and urgent re-evaluation would be necessary. Patient with good understanding of and agreement to plan and is comfortable going home at this time This document was made in part using voice recognition software. While efforts are made to proofread this document, sound alike and grammatical errors may occur. Departure - Departure Disposition: 01 Home, Self Care Clinical Impression: Contusion of knee, left Qualifiers: Encounter type: initial encounter Qualified Code(s): S80.02XA - Contusion of left knee, initial encounter Condition: Good Instructions: ED Contusion Soft Tissue Follow-Up: your,doctor in 1 week [Other] Prescriptions: HYDROcod/ACETAM 5/325 [[place] 5/325] 1 - 2 ea PO Q6H PRN #14 tablet PRN Reason: Pain Comments: Please follow-up with your doctor for further care. Your x-ray does not show any acute abnormalities. I would utilize the walker to help take pressure off of your knee. This should improve over the next few days. Your prescriptions were sent to [facility] in [place]. I am prescribing a short course of narcotic pain medication for you. These are potentially dangerous and addictive medications that should be used carefully. These medications may constipate you. Take an [id number] stool softener (docusate) twice daily with plenty of water while taking these medications. If you go 24 hours without a bowel movement, take [id number] miralax, per package instructions. Do not drink or drive while taking these medications. If you received narcotic or sedating medications while in the emergency department, do not drive for 24 hours. Store this medication in a safe, secure place and out of reach of children. It is a violation of federal law to give or sell this medication to another person or to use in a manner other than prescribed. The ED will not refill narcotic prescriptions, including prescriptions lost or stolen. To dispose of unwanted medications: 1. [facility] at [address] in [place] has a medication drop box. They accept prescription medications (in pill form) Sunday through Sunday 9:00 a.m. to 5:00 p.m. 2. [facility] [employer] [facility] accepts prescription medications (in pill form only) for disposal year round. Call for more information. 3. Contact the [facility] for the next [facility] sponsored prescription rola g collection event. , [phone], or [phone]; Discharge Date/Time: 09/25/22 17:39
[2022-09-25 17:40] VITALS: BP 146/86
== END 2022-09-25 17:39 | disposition home or self-care (01) ==
LOC: ED 14:18
DX: S80.02XA Contusion of left knee, initial encounter (principal); W01.0XXA Fall on same level from slipping, tripping and stumbling without subsequent striking against object, initial encounter
CPT/HCPCS: 99283